=== PATIENT | female | born 1980 | race Caucasian/White ===

== ENCOUNTER 2020-09-03 10:58 | Emergency (ER) | payer BC, SELFPAY ==
--- NOTE | 2020-09-03 11:08 | ED.CHESTPAIN ---
HPI - Chest Pain General Chief Complaint: Shortness of Breath/Dyspnea Stated Complaint: problems after covid shot Time Seen by Provider: 09/03/20 11:08 Source: patient and RN notes reviewed Mode of arrival: ambulatory Limitations: no limitations and clinical condition History of Present Illness HPI narrative: 40-year-old female presents to the [facility] with complaints of continuous chest tighness and shortness of breath since getting the Covid vaccine on 08/04. Was seen at [facility] ER on August 05 with complaints of pain. Was given pain meds and told to follow-up with primary care provider which she reports that she has done. Patient reports that June 2019 her primary care believes that she had Covid at that time due to loss of taste and smell with chronic fatigue. Those symptoms had resolved. When she received her vaccine symptoms became worse. Related Data Home Medications Medication Instructions Recorded Confirmed albuterol sulfate 2 puff INHALATION Q4H PRN 09/03/20 09/03/20 fluticasone furoate-vilanterol 1 inh INHALATION DAILY 09/03/20 09/03/20 [Breo Ellipta] Allergies Allergy/AdvReac Type Severity Reaction Status Date / Time ciprofloxacin [From Cipro] Allergy Rash Verified 09/03/20 11:36 Penicillins Allergy Rash Verified 09/03/20 11:36 ketorolac [From Toradol] AdvReac Dyspnea / Verified 09/03/20 11:27 SOB Review of Systems Review of Systems: Narrative: CONSTITUTIONAL: Denies fever, chills, or sweats. Fatigue EYES: Denies visual changes, redness, or discharge. ENT: Denies rhinorrhea, congestion, sore throat, or otalgia. CARDIOVASCULAR: Denies chest pain. Reports chest pressure with palpitations. RESPIRATORY: Denies cough. Reports chronic dyspnea. GASTROINTESTINAL: Denies abdominal pain, nausea, vomiting, or diarrhea. GENITOURINARY: Denies dysuria or hematuria. SKIN: Denies rash or itching. MUSCULOSKELETAL: Denies back pain, joint pain, or myalgia. NEUROLOGIC: Denies headache, numbness, or weakness. PSYCHIATRIC: Denies anxiety or depression. All other systems reviewed are negative, except as documented in HPI. [facility] Past Medical History Medical History (Updated 09/03/20 @ 18:11 by Elke Ward) Asthma Surgical History Surgical History (Updated 09/03/20 @ 11:41 by Elke Ward) H/O adenoidectomy H/O: hysterectomy Comments At the time of my signature, I reviewed and agree with the nursing past medical, surgical, social, and family history. There is no relevant family history pertinent to the patient complaint. Exam Narrative: Exam Narrative: GENERAL: This is a well-nourished, well-developed patient, in mild distress. mildly ill HEAD: normocephalic, atraumatic. EYES: PERRL. Sclera clear/white. Vision is grossly intact. EARS: External ears normal NECK: Neck supple, non-tender without lymphadenopathy, masses or thyromegaly. CARDIOVASCULAR: Regular rate and rhythm without murmurs, gallops, or rubs. RESPIRATORY: Clear to auscultation. Breath sounds equal bilaterally. No wheezes, rales, or rhonchi. Tachypneic GASTROINTESTINAL: Abdomen soft, non-tender, nondistended. SKIN: warm, Dry, intact with no suspicious lesions or rash, good texture and turgor. NEURO: awake, alert, and oriented to person, place and time. There were no obvious focal neurologic abnormalities. EXTREMITIES: No joint tenderness, effusion, or edema noted. No calf tenderness. Negative Homans sign bilaterally. BACK: Nontender without deformity. No CVA tenderness. Course Vital Signs Vital signs: Vital Signs Temperature 98.1 F 09/03/20 11:10 Pulse Rate 62 09/03/20 11:10 Respiratory Rate 28 H 09/03/20 11:10 Blood Pressure 125/74 09/03/20 11:10 Pulse Oximetry 100 09/03/20 11:10 Temperature 98.1 F 09/03/20 11:10 Pulse Rate 62 09/03/20 11:10 Respiratory Rate 28 H 09/03/20 11:10 Blood Pressure 125/74 09/03/20 11:10 Pulse Oximetry 100 09/03/20 11:10 Reviewed Transfer Transfered
[2020-09-03 11:10] VITALS: BP 125/74; PULSE 62; RESP 28; TEMP 36.7; O2SAT 100
--- NOTE | 2020-09-03 11:19 | ECG_ITS ---
Measurements Intervals [place] Rate: 59 P: 71 VA: 134 QRS: 55 QRSD: 90 T: 60 QT: 429 QTc: 428 Interpretive Statements SINUS RHYTHM INCOMPLETE RIGHT BUNDLE BRANCH BLOCK BORDERLINE ECG Electronically Signed On 09-03-2020 16:15:32 CDT by Pipe Villalba D.O.
== END 2020-09-03 11:25 | disposition short-term general hospital (02) ==
LOC: EXPBETH 11:04
PROVIDERS: Emergency Provider Nurse Practitioner
DX: R06.02 Shortness of breath (principal); J45.909 Unspecified asthma, uncomplicated
CPT/HCPCS: 93005; 99213; G0463

== ENCOUNTER 2021-05-14 16:30 | Emergency (ER) | payer BC, SELFPAY ==
[2021-05-14 17:56] VITALS: BP 131/105; PULSE 70; RESP 14; TEMP 36.7; O2SAT 100
--- NOTE | 2021-05-14 19:28 | ED.URI ---
HPI - URI/Sore Throat General Chief Complaint: Upper Respiratory Infection Stated Complaint: Cough/Sore Throat/ Shortness of Breath Time Seen by Provider: 05/14/21 19:28 Source: patient, RN notes reviewed and old records reviewed Mode of arrival: ambulatory Limitations: no limitations History of Present Illness HPI Narrative: 41 year old female who prsents to express care with complaints of nausea yesterday and woke up to today with sore throat, cough, chills and body aches, report has had some coughing for one week though. Patient reports that she has had COVID vaccinations. Patient reports that she has been taking Ibuprofen for her symptoms. denies any acute fevers but states that she has had chills. Patient does have history of asthma but denies any acute dyspnea at rest or with activity, no tachypnea noted, SAO2 100% on room air. MD elicited complaint: cough, sore throat, rhinorrhea and nasal congestion Pertinent past history: asthma Treatments prior to arrival: ibuprofen Related Data Home Medications Medication Instructions Recorded Confirmed albuterol sulfate INHALATION 05/14/21 fluticasone furoate-vilanterol INHALATION 05/14/21 [Breo Ellipta] nortriptyline 50 mg PO DAILY 05/14/21 05/14/21 nystatin 100,000 unit TOPICAL BID 05/14/21 05/14/21 ondansetron 8 mg PO DIRECTED PRN 05/14/21 05/14/21 topiramate 25 mg PO HS 05/14/21 05/14/21 Allergies Allergy/AdvReac Type Severity Reaction Status Date / Time ciprofloxacin Allergy Unknown Rash Verified 05/14/21 18:44 ketorolac Allergy Unknown Dyspnea / Verified 05/14/21 18:44 SOB paroxetine Allergy Unknown Nausea Verified 05/14/21 18:44 Penicillins Allergy Unknown PARENTS Verified 05/14/21 18:44 ALLERGIC, JUST WONT GIVE sertraline Allergy Unknown Nausea Verified 05/14/21 18:44 Review of Systems Review of Systems: CONSTITUTIONAL: Denies fever,positive for chills, or sweats. EYES: Denies visual changes, redness, or discharge. ENT: Positive for rhinorrhea, congestion, sore throat, no otalgia. CARDIOVASCULAR: Denies chest pain, palpitations, or edema. RESPIRATORY: Positive cough no dyspnea. GASTROINTESTINAL: Denies abdominal pain, nausea, vomiting, or diarrhea. GENITOURINARY: Denies dysuria or hematuria. SKIN: Denies rash or itching. MUSCULOSKELETAL: Denies back pain, joint pain, body aches stated NEUROLOGIC: Denies headache, numbness, or weakness. PSYCHIATRIC:Positive for anxiety or depression. All systems reviewed & are unremarkable except as noted in HPI and below PMFSH Past Medical History Medical History (Updated 05/16/21 @ 20:35 by Michelle Corona NP) Asthma Hx of migraines Surgical History Surgical History (Updated 05/16/21 @ 20:36 by Michelle Croona NP) H/O adenoidectomy H/O tubal ligation H/O: hysterectomy History of placement of ear tubes Family History Family History (Updated 01/12/14 @ 07:13 by DOCTOR UNKNOWN) Grandparent Family history of type 2 diabetes mellitus Family history of heart disease in male family member before age 55 Father Family history of heart disease in male family member before age 55 Mother Family history of heart disease in male family member before age 55 Social History Social History Smoking status: Light tobacco smoker Alcohol intake: current Exam Narrative: GENERAL: Well-appearing, well-nourished, and in no acute distress. HEAD: Normocephalic, atraumatic. EYES: PERRLA and EOMI. ENT: Nares red with clear rhinorrhea no epistaxis. Mucous membranes moist.TM's normal with good light reflex, throat red with no lesions or exudates no tosnil enlargement post nasal drainage noted. NECK: Supple.no lymphadenopathy CHEST: Faint occasional wheeze noted on auscultation. No respiratory distress.cough dry SAO2 100% on room air. HEART: Regular rate and rhythm. No murmur heard. Normal peripheral pulses. ABDOMEN: Soft, nontender, nondistended, normal active bowel sounds. EXTREMITIES: Normal r
== END 2021-05-14 19:57 | disposition home or self-care (01) ==
PROVIDERS: Emergency Provider Registered Nurse
DX: J40 Bronchitis, not specified as acute or chronic (principal); F17.200 Nicotine dependence, unspecified, uncomplicated
CPT/HCPCS: 87081; 87804; 87880; 99203; G0463

== ENCOUNTER → 2021-05-16 02:27 | Outpatient (CLI) | payer BC, SELFPAY ==
[2021-05-16 20:33] LABS: SARS-CoV-2 RNA PCR Negative
== END ==
PROVIDERS: Visit Provider Registered Nurse
DX: J40 Bronchitis, not specified as acute or chronic (principal); Z20.822 Contact with and (suspected) exposure to COVID-19
CPT/HCPCS: C9803; U0003; U0005

== ENCOUNTER 2024-10-16 15:45 | Emergency (ER) | payer BC, SELFPAY ==
--- NOTE | ~2024-10-16 | XR_ITS ---
EXAMINATION: XR ankle RT min 3V, XR foot RT min 3V DATE: 10/16/2024 16:19 INDICATION: Right foot and ankle pain TECHNIQUE: 1. Anteroposterior, mortise, additional oblique and lateral view of the right ankle were obtained. 2. Dorsoplantar, two oblique and lateral views of the right foot were obtained. COMPARISON: None. FINDINGS: Alignment of the right foot and ankle is normal. No fracture or osteochondral lesion. Mild polyarticu lar osteoarthritis at multiple joints in the mid and forefoot. Small plantar calcaneal spur. No ankle joint effusion. Mild soft tissue swelling overlying the lateral malleolus and at the anterolateral h indfoot. IMPRESSION: 1. 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 No acute osseous abnormality. Reviewed, dictated and finalized at location A. IMPRESSION: 1. 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 No acute os seous abnormality.
[2024-10-16 15:53] VITALS: BP 129/97; PULSE 57; RESP 16; TEMP 36.4; O2SAT 100
--- NOTE | 2024-10-16 15:55 | ED.EXTPRO ---
HPI - Extremity Problem General Chief complaint: Extremity Problem,Nontraumatic Stated complaint: right foot/ankle Time Seen by Provider: 10/16/24 15:57 Source: patient, RN notes reviewed and old records reviewed Mode of arrival: ambulatory Limitations: no limitations History of Present Illness HPI Narrative: 44 year old female presents to express care with complaints of pain to her right foot and ankle with increase pain for the past 2 days with no known injury to her foot. Patient has increased pain when flexing foot, does have some swelling noted to the lateral aspect of her right ankle and to right foot with pulses present to right foot of strong quality. MD Complaint: extremity pain (right foot and ankle) Onset (ago): day(s) (2) Severity scale (1-10): 6 Exacerbating factors: weight bearing Related Data Home Medications ?Medication ?Instructions ?Recorded ?Confirmed ?Last Taken ?Type albuterol sulfate 90 mcg/actuation 2 puff inhalation Q4H PRN 09/03/20 09/03/20 Unknown History aerosol inhaler Shortness Of Breath albuterol sulfate 90 mcg/actuation inhalation 05/14/21 Unknown History aerosol inhaler fluticasone furoate 100 inhalation 05/14/21 Unknown History mcg-vilanterol 25 mcg/dose inhalation powder (Breo Ellipta) ondansetron 8 mg disintegrating 8 mg PO DIRECTED PRN Nausea 05/14/21 05/14/21 Unknown History tablet famotidine PO 10/16/24 Unknown History levothyroxine .ROUTE 10/16/24 Unknown History pantoprazole PO 10/16/24 Unknown History quetiapine .ROUTE 10/16/24 Unknown History Allergies Allergy/AdvReac Type Severity Reaction Status Date / Time ciprofloxacin Allergy Unknown Rash Verified 10/16/24 15:59 ketorolac Allergy Unknown Dyspnea / Verified 10/16/24 15:59 SOB paroxetine Allergy Unknown Nausea Verified 10/16/24 15:59 Penicillins Allergy Unknown PARENTS Verified 10/16/24 15:59 ALLERGIC, JUST WONT GIVE sertraline Allergy Unknown Nausea Verified 10/16/24 15:59 Review of Systems Review of Systems: CONSTITUTIONAL: Denies fever, chills, or sweats. EYES: Denies visual changes, redness, or discharge. ENT: Denies rhinorrhea, congestion, sore throat, or otalgia. CARDIOVASCULAR: Denies chest pain, palpitations, or edema. RESPIRATORY: Denies cough or dyspnea. GASTROINTESTINAL: Denies abdominal pain, nausea, vomiting, or diarrhea. GENITOURINARY: Denies dysuria or hematuria. SKIN: Denies rash or itching. MUSCULOSKELETAL: Denies back pain,positive for pain to her right lateral ankle and to right foot lateral side and increases when she flexes her foot, or myalgia. NEUROLOGIC: Denies headache, numbness, or weakness. PSYCHIATRIC: Denies anxiety or depression. All systems reviewed & are unremarkable except as noted in HPI and below [facility] Past Medical History Medical History (Updated 10/19/24 @ 07:46 by Michelle Corona NP) Bronchitis Asthma Asthma Hx of migraines Surgical History Surgical History H/O: hysterectomy H/O adenoidectomy H/O adenoidectomy History of placement of ear tubes H/O: hysterectomy H/O tubal ligation Family History Family History Grandparent Family history of type 2 diabetes mellitus Family history of heart disease in male family member before age 55 Father Family history of heart disease in male family member before age 55 Mother Family history of heart disease in male family member before age 55 Social History Social History Smoking status: Light tobacco smoker Alcohol intake: current Comments At time of signature, agree with nursing past medical, surgical, social and family history. There is no relevant family history pertinent to the presenting complaint Exam Narrative: GENERAL: Well-appearing, well-nourished, and in no acute distress. HEAD: Normocephalic, atraumatic. EYES: PERRLA and EOMI. ENT: Nares clear, no rhinorrhea or epistaxis. Mucous membranes moist. NECK: Supple.no lymphadenopathy CHEST: Clear to auscultation. No respiratory distress.SAO2 100% on room air HEART: Regular rate and rhythm. No murmur heard. Normal peripheral pulses. ABDOMEN: Soft, nontender, nondistended, normal active bowel sounds. EXTREMITIES: Normal range of motion. No edema. Exception noted to pain and swelling of lateral right ankle and lateral foot without known injury,increased pain with ambulation and flexion of foot,strong pedal pulse denies any tingling or numbness to foot, no obvious deformity SKIN: Warm, dry, no rash. NEURO: No focal deficits. Alert and oriented x3. Course Course Emergency Course: Patient is aware of diagnosis, understands and agrees to treatment plan.? Anticipatory guidance given.? Patient agrees to follow-up as directed and is aware of reasons to seek care at the emergency department. Portions of this record may have been created with voice recognition software Level of Care: Express Care Visit Vital Signs Vital signs: Vital Signs Temperature 36.4 C 10/16/24 15:53 Pulse Rate 57 L 10/16/24 15:53 Respiratory Rate 16 10/16/24 15:53 Blood Pressure 129/97 H 10/16/24 15:53 Pulse Oximetry 100 10/16/24 15:53 Oxygen Delivery Room Air 10/16/24 15:53 Temperature 36.4 C 10/16/24 15:53 Pulse Rate 57 L 10/16/24 15:53 Respiratory Rate 16 10/16/24 15:53 Blood Pressure 129/97 H 10/16/24 15:53 Pulse Oximetry 100 10/16/24 15:53 Oxygen Delivery Room Air 10/16/24 15:53 Reviewed MDM - Extremity (Nontraumatic) Differential Diagnosis Differential diagnosis: Likely other (right foot and ankle pain, swelling of right foot and ankle, osteoarthritis, plantar calcaneal spur) Medical Records Attestation: I reviewed the patient's medical records. Imaging Data My impression: polyarticular osteoarthritis right midfoot and forefoot, soft tissue swelling of lateral ankle and lateral foot,small plantar calcaneal spur Radiologist's impression: [facility] [place] [address] [place] [address] XRay Report Signed Patient: Lady Lugo : 1980 MR#: [id number] Age: 44 Acct:[id number] Loc: [facility] ADM Date: 10/16/24Attending Dr: Ordering Physician: Michelle Corona APRN Date of Service: 10/16/24 Procedure(s): XR ankle RT min 3V; XR foot RT min 3V Accession Number(s): [id number]; [id number] cc: Michelle Corona APRN~ EXAMINATION: XR ankle RT min 3V, XR foot RT min 3V DATE: 10/16/2024 16:19 INDICATION: Right foot and ankle pain TECHNIQUE: 1. Anteroposterior, mortise, additional oblique and lateral view of the right ankle were obtained. 2. Dorsoplantar, two oblique and lateral views of the right foot were obtained. COMPARISON: None. FINDINGS: Alignment of the right foot and ankle is normal. No fracture or osteochondral lesion. Mild polyarticular osteoarthritis at multiple joints in the mid and forefoot. Small plantar calcaneal spur. No ankle joint effusion. Mild soft tissue swelling overlying the lateral malleolus and at the anterolateral hindfoot. IMPRESSION: 1. 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 No acute osseous abnormality. Reviewed, dictated and finalized at location A. Please be advised this is a medical document. It is intended for [id number] communication. It is written in medical language and may contain unfamiliar abbreviations or verbiage. Medical documents are intended to carry relevant information, facts as evident, and the clinical opinion of the practitioner at the time of the encounter. This report may have been done utilizing a voice recognition system. Attempts have been made to correct errors. However, there may be uncorrected grammatical, spelling, and recognition errors present. The file time of this note does not necessarily represent the time of service. Dictated By: Mihir Cohen MD 10/16/24 1626 Signed By: <Electronically signed by Mihir Cohen MD in OV> Critical Care Time Critical Care Time Critical Care Time: No Discharge Plan Discharge Clinical Impression: Acute pain of right foot, Pain and swelling of right ankle Patient Disposition: Home Condition: Stable Instructions: Osteoarthritis (ED) Additional Instructions: Elastic wrap or orthopedic splint as directed for comfort for the next 5-7 days Tylenol for lesser pain Ibuprofen regularly for the next 2-3 days for the inflammation Follow-up with orthopedic surgeon or utility mechanic supervisor for further evaluation of foot Follow-up with PCP if further problems or concerns Ice to the area 20-30 minutes 4-6 times a day Elevate above heart If your symptoms persist, change or worsen significantly before you can contact your personal physician then please, without delay, go to the emergency department for further evaluation. Follow-up with PCP in 7-10 days or sooner if needed Follow up with PCP soon in regards to your blood pressure which is elevated above threshold for referral. Blood pressure above 120/80 may indicate pre-hypertension. 129/97 Disk copy of foot and ankle xray Patient Language: Citizen Of [place] Prescriptions: New prednisone 20 mg tablet 20 mg PO BID Qty: 10 0RF Rx Instructions: take with food No Action albuterol sulfate 90 mcg/actuation HFA aerosol inhaler 2 puff INHALATION Q4H PRN (Reason: Shortness Of Breath) ondansetron 8 mg tablet,disintegrating 8 mg PO DIRECTED PRN (Reason: Nausea) albuterol sulfate 90 mcg/actuation HFA aerosol inhaler INHALATION Breo Ellipta 100-25 mcg/dose blister with device INHALATION quetiapine [Seroquel] .ROUTE levothyroxine [Synthroid] .ROUTE pantoprazole PO famotidine [Pepcid AC] PO Follow-up/Referrals: PHYSICIAN NOT ON STAFF,NONSTAFF [Primary Care Provider] - Time of Disposition: 17:09 Quality Lizzette Coma Scale Eyes: Open Verbal: Oriented and Alert Motor: Follows Commands Lizzette Coma Total Score: 15
--- OUTSIDE RECORDS SUMMARY | 2024-10-16 18:12 | XMS_ITS | Encounter Summary ---
Author Organization [facility] Address [address] [place] [address] Phone Care Team Providers Care Podiatric Foot And Ankle Specialist Name Role Phone Cody Dasilva MD Primary Care Provider Tessa Rincon APRN, COIN WRAPPING MACHINE OPERATOR Primary Care Provid er Ambreen Mendez APRN, COIN WRAPPING MACHINE OPERATOR Unavailable [phone] Reason for Visit * Reason Onset Date Comments ED Follow-up 08/09/2020 Encounter Details Date Type Department Care Team (Late st Contact Info) Description 08/09/2020 Telephone [facility] [address] [place] [address] Cody Dasilva MD [address] [address] ED Follow-up Social History Tobacco Use Types Packs/Day Years Used Date Smoking Tobacco: Some Days Cigarettes 0.3 20 Smokeless Tobacco: Never Comments:less a pack a day Alcohol Use Standard Drinks/Week Comments No 0 (1 standard drink = 0.6 oz pur e alcohol) social PHQ-2 Answer Date Recorded Total Score - Questions 1-9 0 02/16 Education Answer Date Recorded What is the highest level of school you have completed or the highest degree you have received? Some college, no degree 04/03/2020 Sexually Active Control Partners Comments Yes Male Comments No Sex and Gender Information Value Date Recorded Sex Assigned at Not on file Legal Sex Female 7:43 PM CDT Gender Identity Not on file Sexual Orientation Not on file COVID-19 Exposure Response Date Recorded In the last month, have you been in contact with someone who was confirmed or suspected to have Coronavirus / COVID-19? No / Unsure 08/10/2020 12:45 PM CDT documented as of this encounter Miscellaneous Notes * Telephone Encounter - Anita Altman RMA - 08/10/2020 10:49 AM CDT Scheduled patient today 08/10 * Telephone Encounter - Cody Dasilva MD - 08/09/2020 2:30 PM CDT Please call. Make ov. i'm not sure what is going on and how to help you. * Telephone Encounter - López Mccain RN - 08/09/2020 1:50 PM CDT Pt f/u to the 08/05/20 ED visit. States still not feeling any better since receiving her 2nd Moderna dose on 08/04/20 States still having the nausea, COTTO, fatigue, fever off and on and loss taste. States tramadol and zofran only give minimal relief. Asking for further recommendations documented in this encounter Plan of Treatment Upcoming Encounters Date Type Department Care Team (Late st Contact Info) Description 10/18/2024 8:00 AM CDT Office Visit [facility] - Pulmonology & Sleep Medicine - [place] [address] [place] [id number] Ambreen Mendez, DARLINE, COIN WRAPPING MACHINE OPERATOR [id number] [address] 11/03/2024 8:15 AM CDT Office Visit [facility] - Endocrinology - [place] [address] [place] [address] Tessa Rincon APRN, COIN WRAPPING MACHINE OPERATOR [address] [facility] [address] [place] [address] Henrik Jimenez MD [address] [address] 01/10/2025 10:30 AM CDT Office Visit [facility] Family Medicine - [place] [address] [place] [address] Tessa Rincon APRN, COIN WRAPPING MACHINE OPERATOR [address] [address] documented as of this encounter Visit Diagnoses Not on filedocumented in this encounter Additional Health Concerns Infection Onset Date Last Indicated Resolved Time COVID - 19 08/10/2020 08/10/2020 08/12/2020 7:46 AM CDT COVID - 19 09/03/2020 09/03/2020 09/05/2020 7:44 AM CDT COVID - 19 03/19/2021 03/19/2021 04/08/2021 12:1 6 AM INFRASTRUCTURE PROJECT MANAGER COVID - 19 05/20/2021 05/20/2021 06/09/2021 12:1 6 AM INFRASTRUCTURE PROJECT MANAGER COVID - 19 2022 2022 05/05/2022 12:1 6 AM INFRASTRUCTURE PROJECT MANAGER Respiratory Rule-Out 09/27/2023 09/27/2023 024 3:23 PM CDT COVID - 19 09/27/2023 09/27/2023 09/27/2023 3:23 PM CDT COVID - 19 01/14/2024 01/14/2024 01/14/2024 10:3 0 AM CDT COVID - 19 Confirmed 01/14/2024 01/14/20242 024 12:16 AM CDT COVID - 19 07/06/2024 07/06/2024 07/06/2024 6:57 PM INFRASTRUCTURE PROJECT MANAGER Respiratory Rule-Out 07/06/2024 07/06/2024 025 6:58 PM INFRASTRUCTURE PROJECT MANAGER Assessment Noted Time PHQ-9 Depression Total Score: 0 03/09/20 20 1:17 PM CDT documented as of this encounter Care Teams Podiatric Foot And Ankle Specialist Relationship Specialty Start Date End Date Cody Dasilva MD [address] [facility] [address] [place] [address] PCP - General Family Medicine 08/19/16 04/20/23 Tessa Rincon APRN, COIN WRAPPING MACHINE OPERATOR [address] [facility] [address] [place] [address] PCP - General Advanced Practice Nurse 04/21/23 Ambreen Mendez APRN, COIN WRAPPING MACHINE OPERATOR [address] [facility] [address] [place] [address] Nurse Practitioner Advanced Practice Nurse 02/26/24 documented as of this encounter
--- OUTSIDE RECORDS SUMMARY | 2024-10-16 18:12 | XMS_ITS | Encounter Summary ---
Author Organization [facility] Address [address] [place] [address] Phone Care Team Providers Care Light Air Defense Artillery Crewmember Name Role Phone Tessa Rincon APRN, JAIRON Primary Care Provid er Ambreen Mendez APRN, CNP Unavailable [phone] Reason for Visit * Reason Comments Medication Refill Encounter Details Date Type Department Care Team (Late st Contact Info) Description 05/15/2023 Refill [facility] - Family Medicine [facility] [address] [place] [address] Tessa Rincon APRN, JAIRON [address] [phone] Medication Refill Social History Tobacco Use Types Packs/Day Years Used Date Smoking Tobacco: Every Day Cigarettes 0.3 20 Started: 09/22/2000; Last attempted to quit: 09/22/2020 Smokeless Tobacco: Never Comments:2 a day Alcohol Use Standard Drinks/Week Comments Not Currently 0 (1 standard drink = 0.6 oz pur e alcohol) PHQ-2 Answer Date Recorded Total Score - Questions 1-9 14 09/15 Education Answer Date Recorded What is the highest level of school you have completed or the highest degree you have received? Some college, no degree 10/08/2021 Sexually Active Control Partners Comments Yes Male Comments No Sex and Gender Information Value Date Recorded Sex Assigned at Not on file Legal Sex Female 7:43 PM CDT Gender Identity Not on file Sexual Orientation Not on file documented as of this encounter Miscellaneous Notes * Telephone Encounter - Karma Riddle RN - 05/15/2023 10:05 AM LABORER VINEYARD Medication failed the protocol, provider to review and approve the medication order if appropriate. Requested Prescriptions Pending Prescriptions Disp Refills naproxen (NAPROSYN) 500 MG Tablet [Pharmacy Med Name: Naproxen 500 MG Oral Tablet] 60 Tablet 0 Sig: TAKE 1 TABLET BY MOUTH TWICE DAILY WITH MEALS NSAIDs Protocol Failed - 05/15/2023 9:41 AM Failed - No matching NSAID med order in past 45 days Matching medication order placed on 04/21/2023 7:51 AM Order [id number]: naproxen (NAPROSYN) 500 MG Tablet (For orders placed between 03/31/2023 10:05 AM and 05/15/2023 10:05 AM) Passed - Normal serum creatinine in past 12 months CREATININE, BLOOD Date Value Ref Range Status 04/05/2023 0.84 0.60 - 1.00 mg/dL Final Passed - Visit with relevant provider in past 12 months or upcoming 90 days Recent Visits Date Type Provider Dept 04/21/23 Office Visit Tessa Rincon APRN, CORN SHREDDER [facility] 09/04/22 Office Visit Yony Shannon APRN, CORN SHREDDER [facility] [place] 08/27/22 Telemedicine Cody Dasilva MD [facility] [place] 08/12/22 Telemedicine Cody Dasilva MD [facility] [place] 07/29/22 Office Visit Cody Dasilva MD [facility] 05/28/22 Office Visit Bisi Mcdonald, [facility] Showing recent visits within past 365 days and meeting all other requirements Future Appointments No visits were found meeting these conditions. Showing future appointments within next 90 days and meeting all other requirements Passed - AST less than 55 or ALT less than 90 in past 12 months SGOT (AST) Date Value Ref Range Status 04/05/2023 17 5 - 34 U/L Final SGPT (ALT) Date Value Ref Range Status 04/05/2023 14 0 - 55 U/L Final Passed - HGB greater than 10 or HCT greater than 30 in past 12 months HEMOGLOBIN (HGB) Date Value Ref Range Status 04/05/2023 12.4 12.0 - 15.8 g/dL Final HEMATOCRIT (HCT) Date Value Ref Range Status 04/05/2023 37.2 36.0 - 47.0 % Final RER VINEYARD documented in this encounter Plan of Treatment Upcoming Encounters Date Type Department Care Team (Late st Contact Info) Description 10/18/2024 8:00 AM CDT Office Visit [facility] - Pulmonology & [facility] Medicine - [place] [address] [place] [address] Ambreen Mendez APRN, CORN SHREDDER #2 [facility] [address] [place] [address] 11/03/2024 8:15 AM CDT Office Visit [facility] - [place] #2 [facility] [place] [address] Tessa Rincon APRN, CORN SHREDDER #2 [facility] [address] [place] [address] Henrik Jimenez MD #2 [facility] [address] [place] [address] 01/10/2025 10:30 AM CDT Office Visit [facility] - [place] [address] [place] [address] Tessa Rincon APRN, CORN SHREDDER [address]2 [facility] [address] [place] [address] documented as of this encounter Goals Goal Patient Goal Type Associated Problems Recent Progress Patient-Stated? Author Behavioral Health Behavioral Health On track(2022 4:17 PM CDT) Yes Pattie Carpio, SAP HANA DEVELOPER Note: I need to cope better with depression and anxiety. Goal/Objective: Increase coping skills. Anticipated Time Frame for Goal Completion: 6 months Goal Reviewed with: patient Readiness to change: Ready to change Department associated with goal: [facility] Steps to achieve goal: will attend counseling/psychotherapy sessions at least once monthly at least 6 sessions , utilizing individual and/or group sessions to express thoughts and feelings. to identify, verbalize and process at least three contributing factors/triggers to anxiety and depression. T o identify at least two lifestyle changes/habits. to put into action, at least one lifestyle change/habit, for one month or longer, to reduce and or cope with anxiety and depression. documented as of this encounter Visit Diagnoses Diagnosis Acute right-sided low back pain with right-sided sciatica documented in this encounter Additional Health Concerns Infection Onset Date Last Indicated Resolved Time Respiratory Rule-Out 09/27/2023 09/27/2023 024 3:23 PM CDT COVID - 19 09/27/2023 09/27/2023 09/27/2023 3:23 PM CDT COVID - 19 01/14/2024 01/14/2024 01/14/2024 10:3 0 AM CDT COVID - 19 Confirmed 01/14/2024 01/14/2024 024 12:16 AM CDT COVID - 19 07/06/2024 07/06/2024 07/06/2024 6:57 PM LABORER VINEYARD Respiratory Rule-Out 07/06/2024 07/06/2024 025 6:58 PM LABORER VINEYARD Assessment Noted Time PHQ-9 Depression Total Score: 14 023 2:00 PM CDT documented as of this encounter Care Teams Light [employer] Artillery Crewmember Relationship Specialty Start Date End Date Tessa Rincon APRN, JAIRON [address] [address] PCP - General Advanced Practice Nurse 04/21/23 Ambreen Mendez APRN, CORN SHREDDER [address] [address] Nurse Practitioner Advanced Practice Nurse 02/26/24 documented as of this encounter
--- OUTSIDE RECORDS SUMMARY | 2024-10-16 18:12 | XMS_ITS | Data Portability ---
Author Organization [facility] CS/KV/SMSCIvan SI (11) Address [id number] [place] [address] [address] [place] [address] Care Team Providers Care Caser Shoe Parts Name Role Phone GRISELDA ANTONIO Referring Provider Assessment No assessment recorded. Plan of Treatment Reminders Order Date Submit Date Provider Last Modified By Organization Details Last Modified Time Details Appointments None record ed. Lab None record ed. Referral None record ed. Procedures None record ed. Surgeries None record ed. Imaging None record ed. Medication Orders None record ed. Patient TargetsNo targets recorded. Patient InstructionsNo instructions recorded. Reason for Referral None Reported. Problems Name Problem SNOMED Code Status Onset Date Resolution Date Notes Provider Name and Address Organization Details Recorded Time Obstructive sleep apnea of adult [id number] Active Haley Shields null, [place] - [facility] 6 14:47:14 Problem Notes None recorded. Procedures Surgical History Date Name Laterality Status Provider Name and Address Organization Details Recorded Time 10/29/2015 Sleep Study completed Flavio Das [id number] [place] [address] [address], [place], [address], [facility] 11/14/2015 16:48:56 Imaging Results None recorded. Procedure Notes None recorded. Medical Equipment None Reported. Vitals None Recorded Social History None recorded. Functional Status None recorded. Mental Status None recorded. Family History Nothing Reported. Medical History No medical history recorded. Gynecological HistoryNo gynecological history recorded. Obstetrics History GPAL:G 0 P 0 0 0 0 Past Encounters Encounter ID Performer Location Encounter Start Date Encounter Closed Date Diagnosis/Indication Diagnosis SNOMED-CT Code Diagnosis ICD10 Code Diagnosis Note [id number] [facility], [facility] [phone] [facility] [address] [place] [address] 10/29/2015 14:30:03 11/05/2015 14:47:35 Obstructive sleep apnea of adult 3089586982 103 G47.33 Health Concerns Section Related Observation LastModified by Organization Detai ls LastModified Time None Recorded Concern Status LastModified by Organization Details LastModified Time None Recorded Advance Directives Directive None Recorded Payers Insurance Date Sequence Insurance Name Policy Number Policy Morgan Covered Member ID Morgan Member ID Guarantor Name 11/05/2015 2 [place] [facility] Lady Lugo [id number] Lady Lugo 10/19/2015 2 [place] Lady Lugo [id number] Lady Lugo 10/19/2015 1 [facility] [place] Lady Lugo [id number] Lady Lugo 10/24/2015 1 [facility] - [employer] - LOCAL FUND 36 (PPO) Lady Lugo [id number] Lady Lugo 10/29/2015 1 [facility] - [facility] - CARE MANAGEMENT RESOURCES - LOCAL 655 (PPO) Lady Lugo [id number] Lady Lugo OBGyn Episode No OBEpisode recorded.
--- OUTSIDE RECORDS SUMMARY | 2024-10-16 18:12 | XMS_ITS | Encounter Summary ---
Author Organization [facility] Address [address] [place] [address] Phone Care Team Providers Care Pot Fireman Name Role Phone Cody Dasilva MD Primary Care Provider [phone] Tessa Rincon APRN, CNP Primary Care Provid er Ambreen Mendez APRN, JAIRON Unavailable [phone] Reason for Referral * Radiology Services (Emergency) - Closed Specialty Diagnoses / Procedures Referred By Sho stephens Referred To Contact Radiology Diagnoses Right leg pain Procedures US RIGHT DUPLEX LOWER EXTREMITY VEINS Saba Julian APRN, COURIER DELIVERY DRIVER [address] [place] [address] Phone: tel: fax: Referral ID Status Reason Start Date Expiration Date Visits Re quested Visits Authorized [id number] Closed 04/06/2023 1 1 SCREEN PRINTER Encounter Details Date Type Department Care Team (Late st Contact Info) Description 04/06/2023 Transcribe Orders [facility] Patient Access Admitting [address] [place] [id number] Saba Julian APRN, COURIER DELIVERY DRIVER [address] [place] [address] Right leg pain (Primary Dx) Social History Tobacco Use Types Packs/Day Years [...] on file documented as of this encounter Plan of Treatment Upcoming Encounters Date Type Department Care Team (Late st Contact Info) Description 10/18/2024 8:00 AM CDT Office Visit [facility] - Pulmonology & Sleep Medicine [facility] #2 [place] [address] Ambreen Mendez APRN, COURIER DELIVERY DRIVER #2 [facility] [address] [place] [address] 11/03/2024 8:15 AM CDT Office Visit [facility] Medical [facility] - Endocrinology [facility] #[address] [place] [address] Tessa Rincon APRN, COURIER DELIVERY DRIVER #2 [facility] [address] [place] [address] Henrik Jimenez MD #2 [facility] [address] [place] [address] 01/10/2025 10:30 AM CDT Office Visit [facility] Family Medicine [facility] #[address] [place] [address] Tessa Rincon APRN, COURIER DELIVERY DRIVER [address] [address] documented as of this encounter Goals Goal Patient Goal Type Associated Problems Recent Progress Patient-Stated? Author Behavioral Health Behavioral Health On track(2022 4:17 PM CDT) Yes Pattie Carpio, ENVIRONMENTAL SERVICES ATTENDANT Note: I need to cope better with depression and anxiety. Goal/Objective: Increase coping skills. Anticipated Time Frame for Goal Completion: 6 months Goal Reviewed with: patient Readiness to change: Ready to change Department associated with goal: [facility] Steps to achieve goal: [...] and depression. documented as of this encounter Results * US RIGHT DUPLEX LOWER EXTREMITY VEINS (04/06/2023 8:04 AM SILK SCREEN PRINTER) Anatomical Region Laterality Modality vascular Right Ultrasound 04/06/2023 8:05 AM SILK SCREEN PRINTER Impressions 04/06/2023 8:08 AM SILK SCREEN PRINTER IMPRESSION: No lower extremity deep venous thrombosis. Narrative 04/06/2023 8:08 AM SILK SCREEN PRINTER EXAM DESCRIPTION: US RIGHT DUPLEX LOWER EXTREMITY VEINS REASON FOR STUDY: Right lower leg pain, lateral leg pain radiating to the pelvis for 2 days. TECHNIQUE: Duplex scan using the B-mode, spectral Doppler, and color-flow Doppler of the deep venous system of the right lower extremity was performed. Images stored on PACS. COMPARISON: None. FINDINGS: The common femoral, common femoral-saphenous vein confluence, visualized profunda femoral, superficial femoral, and popliteal veins are readily compressible with no intraluminal thrombus on crawford scale images. There is normal color and spectral Doppler signal, including augmentation. Greater saphenous vein appears patent. Visualized calf veins are patent. THIS IS AN ELECTRONICALLY VERIFIED FINAL REPORT 04/06/2023 8:05 AM - Electronically signed by Greg Cordero M.D. CH: RANI Report ID: [id number] Reading Location: [id number] Procedure Note Greg Cordero Jr., MD - 04/06/2023 EXAM DESCRIPTION: US RIGHT DUPLEX LOWER EXTREMITY VEINS REASON FOR STUDY: Right lower leg pain, lateral leg pain radiating to the pelvis for 2 days. TECHNIQUE: Duplex scan using the B-mode, spectral Doppler, and color-flow Doppler of the deep venous system of the right lower extremity was performed. Images stored on PACS. COMPARISON: None. FINDINGS: The common femoral, common femoral-saphenous vein confluence, visualized profunda femoral, superficial femoral, and popliteal veins are readily compressible with no intraluminal thrombus on crawford scale images. There is normal color and spectral Doppler signal, including augmentation. Greater saphenous vein appears patent. Visualized calf veins are patent. THIS IS AN ELECTRONICALLY VERIFIED FINAL REPORT 04/06/2023 8:05 AM - Electronically signed by Greg Cordero M.D. CH: RANI Report ID: [id number] Reading Location: [id number] IMPRESSION: No lower extremity deep venous thrombosis. Saba Julian APRN, COURIER DELIVERY DRIVER G ORDERABLES Fin al Result documented in this encounter Visit Diagnoses Diagnosis Right leg pain- Primary Pain in limb Right leg pain Pain in limb documented in this encounter Additional Health Concerns Infection Onset Date Last Indicated Resolved Time Respiratory Rule-Out 09/27/2023 09/27/2023 024 3:23 PM CDT COVID - 19 09/27/2023 09/27/2023 09/27/2023 3:23 PM CDT COVID - 19 01/14/2024 01/14/2024 01/14/2024 10:3 0 AM CDT COVID - 19 Confirmed 01/14/2024 01/14/2024 024 12:16 AM CDT COVID - 19 07/06/2024 07/06/2024 07/06/2024 6:57 PM SILK SCREEN PRINTER Respiratory Rule-Out 07/06/2024 07/06/2024 025 6:58 PM SILK SCREEN PRINTER Assessment Noted Time PHQ-9 Depression Total Score: 14 023 2:00 PM CDT documented as of this encounter Care Teams Pot Fireman Relationship Specialty Start Date End Date Cody Dasilva MD #2 [facility] [address] [place] [address] PCP - General Family Medicine 08/19/16 04/20/23 Tessa Rincon APRN, COURIER DELIVERY DRIVER #2 [facility] [address] [place] [address] PCP - General Advanced Practice Nurse 04/21/23 Ambreen Mendez APRN, COURIER DELIVERY DRIVER #2 [facility] [address] [place] [address] Nurse Practitioner Advanced Practice Nurse 02/26/24 documented as of this encounter
--- OUTSIDE RECORDS SUMMARY | 2024-10-16 18:12 | XMS_ITS | CONTINUITY OF CARE DOCUMENT ---
Author Name zakiya sigala Address Unknown Organization [facility] Address [address] [place] [address] Phone [phone] Care Team Providers Care Senior Solutions Engineer Name Role Phone Pam MEYERS, Evert Unavailable STROHBECK TURNER SPLITTER MACHINE OPERATOR, PRIYA R Unavailable STROHBECK TURNER SPLITTER MACHINE OPERATOR, PRIYA R Unavailable PROBLEMS Condition Status Date Provider Notes Asthma active Felicitas Lacy NP Chronotropic incompetence active Evert chew MD HTN borderline active Evert Orozco MD Sinus bradycardia active Evert Orozco MD Palpitations active Evert Orozco MD Cardiology examination active Evert Orozco MD ENCOUNTERS Date Type Provider Location Encounter Diag nosis - In-person encounter Office Visit Evert Orozco MD [facility] Asthma - In-person encounter Office Visit Evert Orozco MD [facility] Cardiology examinationPalpitationsSinus bradycardiaHTN borderlineChronotropic incompetence VITAL SIGNS Date Observation Value Provider Body Mass Index (Ratio) 26.75 kg/m2 Jerome Orozco MD blood pressure, cuff size regular Vi nida Sarmiento blood pressure, diastolic 95 mm[Hg] Vi nida Sarmiento blood pressure, systolic 132 mm[Hg] Vip in Torsten respiratory rate E&M 16 /min [facility] pulse rate 50 /min Victor Hugo [facility] oxygen saturation, oximetry 100 % [facility] weight E&M 151 [lb_av] [facility] height E&M 63 [in_i] Victor Hugojunior Sarmiento weight E&M 156 [lb_av] Stella hull Body Mass Index (Ratio) 27.63 kg/m2 Jerome Orozco MD blood pressure, cuff size regular Ke rri Carol blood pressure, diastolic 80 mm[Hg] Ke rri Carol blood pressure, systolic 146 mm[Hg] Dalila Roweer oxygen saturation, oximetry 99 % Manju Medina respiratory rate E&M 12 /min Manju moraenenfelder pulse rate 50 /min Manju Whitney lder weight E&M 156 [lb_av] Manju Whitney lder height E&M 63 [in_i] Manju Whitney lder ALLERGIES Allergy Name Onset Date Reaction Criticality Status PCN High Criticality active TORADOL Low Criticality active PAXIL Low Criticality active CIPRO Low Criticality active HISTORY OF MEDICATION USE Medication Status Instructions Dates Provider Indications Com ments pantoprazole 40 mg tablet,delayed release (DR/EC) active TAKE 1 TABLET BY MOUTH ONCE DAILY Felicitas Lacy NP trazodone 50 mg tablet active Take 1 tablet by mouth every night Felicitas Lacy NP ondansetron 4 mg tablet,disinteg rating active Take 1 tablet on tongue twice a day nausea Felicitas Lacy NP Imitrex 100 mg tablet active 1 tablet by mouth once a day as needed for pain Felicitas Lacy NP tramadol 50 mg tablet completed - Manju Medina albuterol sulfate 90 mcg/actuation HFA aerosol inhaler active INHALE 2 PUFFS BY MOUTH EVERY 6 HOURS NEEDED FOR SHORTNESS OF BREATH Josianeberkley Bambi KULKARNI Breo Ellipta 200-25 mcg/dose blister with device active 1 puff as directed Felicitas Lacy NP SOCIAL HISTORY Date Observation Value Provider personal history of marijuana use no Felicitas Lacy NP drug use no Felicitas Lacy NP alcohol use no Josianeberkley Lacy NP cigarette use yes Felicitas Bambi KULKARNI smoking status Former smoker Felicitas montanez NP INSURANCE PROVIDERS Payer name Policy type / Coverage type [place] red democrat ID [facility] [id number] ADVANCE DIRECTIVES Name Date DISCUSSED - NO DECISION MADE TREATMENT PLAN Date Name Performer Cardiology: N o recent exacerbations. H er updated medication list for this problem includes: Albuterol Sulfate 90 Mcg/actuation Hfa Aerosol Inhaler (Albuterol sulfate) ..... Inhale 2 puffs by mouth every 6 hours as needed for shortness of breath Breo Ellipta 200-25 Mcg/dose Blister With Device (Fluticasone furoate-vilanterol) ..... 1 puff as directed Felicitas Lacy NP Cardiology: N o significant arrhythmias noted on holter monitor. Felicitas Lacy NP Cardiology: N o significant arrhythmias noted on holter monitor. E cho 01/08 wnl ef 65% Felicitas Lacy NP Cardiology: A ppropriate response on stress test Felicitas Lacy NP Cardiology: B P today: 132/95 P rior BP: 146/80 (12/02/2023) Felicitas Lacy NP Cardiology:146/80 today Evert carlos MD Cardiology:Check ECH O Waiting for holter report Evert Orozco MD Cardiology:Routine stress test R toma Orozco MD Date Name Complete Echo Stress Routine HISTORY OF PROCEDURES Procedure Date Procedure Name Provider Procedure Notes S tatus EKG Evert Oorzco MD complete d
--- OUTSIDE RECORDS SUMMARY | 2024-10-16 18:12 | XMS_ITS | Referral Summary ---
Author Organization [facility] Address [address] [place] [address] Care Team Providers Care Supervisor Gas Meter Repair Name Role Phone Tessa Rincon NP Primary Care Provider + Allergies Active Allergy Reactions Criticality Noted Date Comments Ciprofloxacin Hives Medium 12/02/2023 Ketorolac Shortness of breath High 12/02/2023 Paroxetine Anxiety Low 12/02/2023 Penicillins Hives,Rash Medium Medications Breo Ellipta 200-25 mcg/dose diskus inhaler 1 puff daily 2 Active acetaminophen (TYLENOL) 500 mg tablet Take 1 tablet (500 mg total) by mouth every 6 (six) hours as needed for pain Active benzonatate (TESSALON) 100 mg capsuleIndications :Cough Take 1 capsule (100 mg total) by mouth 3 (three) times a day as needed for cough Active methylPREDNISolone (MEDROL DOSEPACK) 4 mg Dosepack Take 1 tablet (4 mg total) by mouth Take as directed on package Active traZODone (DESYREL) 50 mg tablet Take 1 tablet (50 mg total) by mouth nightly Active phenylephrine-acet aminophen-GG 5-325-200 mg tablet Take by mouth Active estazolam (PROSOM) 2 mg tablet Take 1 tablet (2 mg total) by mouth nightly as needed for sleep Active ondansetron ODT (ZOFRAN-ODT) 4 mg disintegrating tablet Take 1 tablet (4 mg total) by mouth every 6 (six) hours as needed 4 Active albuterol HFA (PROVENTIL HFA,VENTOLIN HFA,PROAIR HFA) 90 mcg/actuation inhaler albuterol sulfate 90 mcg/actuation HFA aerosol inhaler Active SUMAtriptan (Imitrex) 100 mg tablet Imitrex 100 mg tablet Active famotidine (PEPCID) 20 mg tablet Take 1 tablet (20 mg total) by mouth 2 (two) times a day as needed Active Active Problems Problem Noted Date Diagnosed Date Obstructive sleep apnea of adult 02/23/2024 Asthma 01/27/2024 Chronotropic incompetence 12/02/2023 Palpitations 12/02/2023 Primary hypertension 12/02/2023 Sinus bradycardia 12/02/2023 Insomnia 10/12/2023 Right sided sciatica 04/07/2023 Simple chronic bronchitis 10/04/2020 Anxiety 12/08/2016 Chronic migraine without aur a without status migrainosus, not intractable 11/10/2016 Depression 11/10/2016 Viral upper respiratory tract infection 08/16/19 17 Overview (10/10/2016): Viral upper respiratory tract infection Fluid level behind tympanic membrane 08/15/2016 Overview (10/10/2016): Middle ear effusion, bilateral Hypertrophy of inferior nasal turbinate 10/19/19 16 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 10/19/2015 Pachyderma of larynx 10/19/2015 Persistent hypersomnia 10/19/2015 PNAR (perennial non-allergic rhinitis) 6 High-risk 10/03/2011 Immunizations Immunization Administration Dates Next Due Tdap 05/10/2018 Social History Tobacco Use Types Packs/Day Years Used Date Smoking Tobacco: Former Cigarettes 0.8 15 Smokeless Tobacco: Never Alcohol Use Standard Drinks/Week Comments Not Currently 0 (1 standard drink = 0.6 oz pur e alcohol) Personal Safety Answer Date Recorded Have you ever been in or are you currently in a harmful physical or emotional relationship or is someone making you feel afraid or unsafe? 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 [employer] Gender Identity Not on file Sexual Orientation Not on file Last Filed Vital Signs Vital Sign Reading Time Taken Comments Blood Pressure 138/80 02/23/2024 11:06 AM CDT Pulse 52 01/20/2024 4:45 PM CDT Temperature 37 C (98.6 F) 01/20/2024 11:15 AM CDT Respiratory Rate 18 01/20/2024 4:45 PM CDT Oxygen Saturation 100% 01/20/2024 4:45 PM CDT Inhaled Oxygen Concentration - - Weight 70.7 kg (155 lb 12.8 oz) 024 11:06 AM CDT Height 160 cm (5' 3) 01/20/2024 11:15 AM CDT Body Mass Index 27.6 01/20/2024 11:15 AM CDT Plan of Treatment Not on file Procedures Procedure Name Priority Date/Time Associated Diagnosis Comments SCREENING MAMMOGRAM BILATERAL W CARLOS Schedule Routine, Read Routine (OP Routine) 03/02/2024 10:54 AM CDT Encounter for screening mammogram for malignant neoplasm of breast from Last 3 Months or Most Recently Relevant to Health Maintenance Results * Screening Mammogram Bilateral W Carlos (03/02/2024 10:54 AM CDT) Anatomical Region Laterality Modality Breast Bilateral Mammography 03/02/2024 10:4 1 PM CDT Impressions 03/02/2024 10:41 PM CDT There is no mammographic evidence of malignancy. A 1 year screening mammogram is recommended. BI-RADS: 1 - Negative. The patient has been or will be contacted. The patient will be entered into a reminder system with a target due date of 1 year for her next mammogram. Electronically signed by: Pranav Cr M.D. Narrative 03/02/2024 10:41 PM CDT EXAMINATION: SCREENING MAMMOGRAM BILATERAL W CARLOS ORDERING HEALTHCARE PROVIDER: MARI VIVAR HISTORY: Routine screening mammography. COMPARISON: 12/16/2021 TECHNIQUE: CC and MLO views of the bilateral breasts were obtained with digital technique using breast tomosynthesis with C view. Computer aided detection was utilized. FINDINGS: DENSITY: The breasts are heterogeneously dense, which may obscure small masses. BREASTS: There are no suspicious masses, suspicious calcifications, or other suspicious findings in either breast. There has been no suspicious interval change. us Mari Vivar DO IMG MAMMO PROCEDURES Fi nal Result from Last 3 Months or Most Recently Relevant to Health Maintenance Insurance [place] CHOICE [place] Care Teams Supervisor Gas Meter Repair Relationship Specialty Start Date End Date Tessa Rincon NP [address] [address] PCP - General Nurse Practitioner 01/06/24
--- OUTSIDE RECORDS SUMMARY | 2024-10-16 18:12 | XMS_ITS | Encounter Summary ---
Author Organization [facility] Address [address] [place] [address] Phone Care Team Providers Care Locomotive Repairer Diesel Name Role Phone Tessa Rincon APRN, CNP Primary Care Provid er Ambreen Mendez APRN, CNP Unavailable [phone] Encounter Details Date Type Department Care Team (Late st Contact Info) Description 10/11/2024 Documentation Only [facility] [address] [place] [address] Tessa Rincon APRN, CNP [address] [id number] Social History Tobacco Use Types Packs/Day Years Used Date Smoking Tobacco: Light Smoker Cigarettes 0.3 25.9 Started: 995; Last attempted to quit: 09/22/2020 Smokeless Tobacco: Never Comments:2 a day Alcohol Use Standard Drinks/Week Comments Not Currently 0 (1 standard drink = 0.6 oz pur e alcohol) [facility] Utilities Answer Date Recorded In the past 12 months has [employer], gas, oil, or water [employer] threatened to shut off services in your home? No 07/20/2024 Social Connection and Isolat ion Panel [NHANES] Answer Date Recorded In a typical week, how many times do you talk on the phone with family, friends, or neighbors? Once a week 07/20/2024 How often do you get togethe r with friends or relatives? Never 07/20/2024 How often do you attend chur ch or judaism services? More than 4 times per year 07/20/2024 Do you belong to any clubs o r organizations such as baptist groups, unions, fraternal or athletic groups, or school groups? Yes 07/20/2024 How often do you attend meet ings of the clubs or organizations you belong to? More than 4 times per year 07/20/2024 Are you , , di vorced, , never , or living with a partner? 07/20/2024 AUDIT-C Answer Date Recorded Q1: How often do you have a drink containing alcohol? Never 07/20/2024 Q2: How many drinks containi ng alcohol do you have on a typical day when you are drinking? Patient does not drink Q3: How often do you have si x or more drinks on one occasion? Never 07/20/2024 Overall Financial Resource Strain (CARDIA) Answe r Date Recorded How hard is it for you to pa y for the very basics like food, housing, medical care, and heating? Somewhat hard 07/20/2024 PHQ-2 Answer Date Recorded Total Score - Questions 1-9 14 09/16 [facility] - Occupational Stress Questionnaire Answer Date Recorded Do you feel stress - tense, restless, nervous, or anxious, or unable to sleep at night because your mind is troubled all the time - these days? Rather much 07/20/2024 Exercise Vital Sign Answer Date Recorde d On average, how many days pe r week do you engage in moderate to strenuous exercise (like a brisk walk)? 0 days 07/20/2024 On average, how many minutes do you engage in exercise at this level? 0 min 07/20/2024 Hunger Vital Sign Answer Date Recorded Within the past 12 months, y ou worried that your food would run out before you got the money to buy more. Never true 07/21/19 25 Within the past 12 months, t he food you bought just didn't last and you didn't have money to get more. Never true 07/20/2024 PRAPARE - Transportation Answer Date Re corded In the past 12 months, has l ack of transportation kept you from medical appointments or from getting medications? No 09/2024 In the past 12 months, has l ack of transportation kept you from meetings, work, or from getting things needed for daily living? No 07/20/2024 Housing Stability Vital Sign Answer Jj e Recorded In the last 12 months, was t here a time when you were not able to pay the mortgage or rent on time? No 07/20/2024 In the past 12 months, how m any times have you moved where you were living? 0 07/20/2024 At any time in the past 12 m onths, were you homeless or living in a fci (including now)? No 07/20/2024 Education Answer Date Recorded What is the highest level of school you have completed or the highest degree you have received? Some college, no degree 10/08/2021 Sexually Active Control Partners Comments Yes Surgical, None Male Comments No Sex and Gender Information Value Date Recorded Sex Assigned at Not on file Legal Sex Female 7:43 PM CDT Gender Identity Not on file Sexual Orientation Not on file documented as of this encounter Progress Notes * Tessa Rincon APRN, CNP - 10/11/2024 2:28 PM CDT Completed * Yazmin Tsai MA - 10/11/2024 2:28 PM CDT Voicemail was left and Le[employer] message sent notifying pt that her forms are ready for pick up and delivery driver at the front desk receptionist. documented in this encounter Plan of Treatment Upcoming Encounters Date Type Department Care Team (Late st Contact Info) Description 10/18/2024 8:00 AM CDT Office Visit [facility] - Pulmonology & Sleep Medicine - [place] [address] [place] [phone] Ambreen Mendez APRN, FISHING VESSEL [place] [address] [facility] [address] [place] [address] 11/03/2024 8:15 AM CDT Office Visit [facility] - Endocrinology - [place] [address] [facility] [place] [address] Tessa Rincon APRN, FISHING VESSEL [place] [address] [facility] [address] [place] [address] Henrik Jimenez MD [address] [facility] [address] [place] [address] 01/10/2025 10:30 AM CDT Office Visit [facility] Family Medicine - [place] [address] [place] [address] Tessa Rincon APRN, FISHING VESSEL [place] [address] [facility] [address] [place] [address] documented as of this encounter Goals Goal Patient Goal Type Associated Problems Recent Progress Patient-Stated? Author Behavioral Health Behavioral Health On track(2022 4:17 PM CDT) Yes Pattie Carpio, TRANSFORMER SHOP SUPERVISOR Note: I need to cope better with depression and anxiety. Goal/Objective: Increase coping skills. Anticipated Time Frame for Goal Completion: 6 months Goal Reviewed with: patient Readiness to change: Ready to change Department associated with goal: [facility] Steps to achieve goal: [...] filedocumented in this encounter Additional Health Concerns Assessment Noted Time PHQ-9 Depression Total Score: 14 025 8:22 AM CDT documented as of this encounter Care Teams Locomotive Repairer Diesel Relationship Specialty Start Date End Date Tessa Rincon APRN, [place] [address] [facility] [address] [place] [phone] PCP - General Advanced Practice Nurse 04/21/23 Ambreen Mendez APRN, [place] [address] [facility] [address] [place] [address] Nurse Practitioner Advanced Practice Nurse 02/26/24 documented as of this encounter
--- OUTSIDE RECORDS SUMMARY | 2024-10-16 18:12 | XMS_ITS | Clinical Summary ---
Author Organization [facility] Address [address], [address] [place] [address] Phone Care Team Providers Care Property Staff Accountant Name Role Phone Tessa Rincon APRN, JAIRON Primary Care Provid er Ambreen Mendez APRN, CNP Unavailable Allergies Active Allergy Reactions Criticality Noted Date Comments Ciprofloxacin Rash 10/19/2015 Paroxetine Hcl Nausea 10/19/2015 Penicillins Rash 10/19/2015 Ketorolac Tromethamine Shortness of Breath 08/2016 Medications Lancets MiscIndications:Hy poglycemia Use as directed 90 Lancet 3 03/27/20 22 Active Glucose Blood StripIndications:H ypoglycemia 1 Strip by Does not apply route daily. USE DIRECTED 30 Strip 11 03/27/20 22 Active albuterol 108 (90 Base) MCG/ACT Aerosol SolutionIndication s:Moderate persistent asthmatic bronchitis without complication take 2 Puffs by inhalation every 4 hours as needed for Wheezing or Cough. 18 g 3 11/08/19 24 Active ondansetron (ZOFRAN-ODT) 4 MG TABLET DISPERSIBLE Take 1 Tablet by mouth every 8 hours as needed for Nausea - 1st line. 20 Tablet 01/14/20 24 Active pantoprazole (PROTONIX) 40 MG Tablet Delayed ResponseIndication s:Epigastric pain Take 1 Tablet by mouth daily. 90 Tablet 1 01/19/20 24 Active famotidine (PEPCID) 20 MG Tablet Take 20 mg by mouth 2 times daily as needed. 02/01/20 24 Active Fluticasone Furoate-Vilanterol (Breo Ellipta) 200-25 MCG/ACT AEROSOL POWDER, BREATH ACTIVATEDIndicatio ns:Moderate persistent asthmatic bronchitis without complication take 1 Puff by inhalation daily. 3 Each 3 07/19/19 25 Active Umeclidinium Craig (INCRUSE ELLIPTA) 62.5 MCG/ACT AEROSOL POWDER, BREATH ACTIVATEDIndicatio ns:Moderate persistent asthmatic bronchitis without complication take 1 Puff by inhalation daily. 3 Each 3 07/19/19 25 Active levothyroxine (SYNTHROID) 50 MCG TabletIndications: Subclinical hypothyroidism Take 1 Tablet by mouth daily. 90 Tablet 3 08/19/19 25 Active QUEtiapine (SEROquel) 50 MG TabletIndications: Severe episode of recurrent major depressive disorder, without psychotic features (HCC) Take 1 Tablet by mouth nightly. 90 Tablet 1 10/05/19 25 Active acetaminophen (TYLENOL) 500 MG Tablet Take 500 mg by mouth. 025 Discontinu ed(Med List Clean Up) eszopiclone (LUNESTA) 2 MG TabletIndications: Primary insomnia Take 1 Tablet by mouth nightly as needed for Sleep. 30 Tablet 07/19/19 25 025 Discontinu ed(Med List Clean Up) QUEtiapine (SEROquel) 25 MG TabletIndications: Severe episode of recurrent major depressive disorder, without psychotic features (HCC) Take 1 Tablet by mouth nightly. 30 Tablet 08/19/19 25 025 Discontinu ed(Reorder ) fluconazole (DIFLUCAN) 150 MG TabletIndications: Yeast infection of the vagina Take 1 Tablet by mouth once for 1 dose. 1 Tablet 09/22/19 25 025 neomycin-polymyxin -dexamethasone (MAXITROL) 3.5-77218-9.1 SuspensionIndicati ons:Other infective acute otitis externa of left ear Place 2 Drops in left ear 2 times daily for 7 days. 5 mL 09/22/19 25 025 Active Problems Problem Noted Date Diagnosed Date Excessive daytime sleepiness 07/18/2024 Asthmatic bronchitis 07/18/2024 Primary insomnia 02/26/2024 SOB (shortness of breath) 02/26/2024 Mixed simple and mucopurulent chronic bronchitis 02/26/2024 Personal history of tobacco use 10/18/2020 Cough 10/04/2020 Simple chronic bronchitis 10/04/2020 Anxiety 12/08/2016 Physical exam, annual (Adult) 11/10/2016 Chronic migraine without aur a without status migrainosus, not intractable 11/10/2016 Depression 11/10/2016 Pachyderma of larynx 10/19/2015 Snoring 10/19/2015 Persistent hypersomnia 10/19/2015 Hypertrophy of inferior nasal turbinate 10/19/19 16 PNAR (perennial non-allergic rhinitis) 6 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 10/19/2015 Resolved Problems Problem Noted Date Diagnosed Date Resolved Date Sore throat 07/22/2017 03/09/2020 Acute viral pharyngitis 10/19/201502/16 Encounters Date Type Department Care Team Description 10/11/2024 Documentation Only [facility] [address] [place] [address] Tessa Rincon APRN, JAIRON 10/06/2024 Results Follow-Up [facility] [address] [facility] [place] [address] Tessa Rincon APRN, JAIRON TRIIODOTHYRININE (T3) FREE, THYROXINE (T4) FREE, THYROID STIMULATING HORMONE (TSH) 10/04/2024 9:10 AM CDT Lab [facility] [address] [place] [address] [facility] y Subclinical hypothyroidism (Primary Dx) Discharge Disposition: Discharged to home or Selfcare 10/04/2024 8:15 AM CDT Office Visit [facility] [address] [place] [address] Tessa Rincon APRN, TILE MACHINE OPERATOR Subclinical hypothyroidism (Primary Dx); Insomnia, unspecified type; Severe episode of recurrent major depressive disorder, without psychotic features (HCC); Acute pain of right shoulder; Non-recurrent acute serous otitis media of left ear Discharge Disposition: Discharged to home or Selfcare 10/04/2024 Travel 09/21/2024 3:30 PM CDT Urgent Care Visit [facility] [address] [place] [address] Jess Machuca APRN, CNP Other infective acute otitis externa of left ear (Primary Dx); Yeast infection of the vagina Discharge Disposition: Discharged to home or Selfcare 09/21/2024 Travel 08/18/2024 10:00 AM CDT Office Visit [facility] [address] [place] [address] Tessa Rincon APRN, CNP Subclinical hypothyroidism (Primary Dx); Abnormal cortisol level; Insomnia, unspecified type; Severe episode of recurrent major depressive disorder, without psychotic features (HCC) Discharge Disposition: Discharged to home or Selfcare 08/17/2024 Travel 08/16/2024 Results Follow-Up [facility] [address] [place] [address] Tessa Rincon APRN, CNP DEHYDROEPIANDROSTERONE SULFATE (DHEA-S), TESTOSTERONE, TOTAL AND FREE, [place] TGRP, ESTRADIOL, Additional followed-up results: 2 08/10/2024 Travel 08/03/2024 Telephone [facility] [address] [place] [address] Tessa Rincon APRN, CNP Need Order 08/02/2024 Telephone [facility] Outpatient [address] [place] [address] Ambreen Mendez APRN, CNP Prior Authorization (Auth Denied-P2P offered//Ordering Provider: Internal/If external office contacted, phone number called: /Spoke to: //Appointment Info:/Clinic: [facility] /Provider: [facility] Appt Date/Time: Jul 7:30 AM/ / //Payor + Plan: [place] [facility] PPO//CPT/Test: 92457/Authorization denied through: MICHAEL //Reason for denial: Your doctor told us that you are feeling tired most of the time. Your do) 07/27/2024 Results Follow-Up [facility] [address] [place] [address] Tessa Rincon APRN, JAIRON CORTISOL 07/25/2024 Nurse Triage [facility] [address] [place] [address] Tessa Rincon APRN, CNP Nausea; Dizziness 07/25/2024 Results Follow-Up [facility] [address] [place] [address] Tessa Rincon APRN, JAIRON CMP (COMPREHENSIVE METABOLIC PANEL), VITAMIN B12, VITAMIN D, 25 HYDROXY TOTAL, Additional followed-up results: 6 07/25/2024 Travel 07/22/2024 Transcribe Orders [facility] [address] [place] [address] Ambreen Mendez APRN, CNP Excessive daytime sleepiness (Primary Dx) 07/22/2024 Transcribe Orders [facility] [address] [place] [address] Ambreen Mendez APRN, CNP Excessive daytime sleepiness (Primary Dx) 07/22/2024 Telephone [facility] [address] [place] [address] Tessa Rincon APRN, CNP 07/21/2024 10:45 AM NETWORK SUPPORT SPECIALIST Office Visit [facility] [address] [place] [address] Tessa Rincon APRN, CNP Insomnia, unspecified type (Primary Dx); Weakness; Myalgia; Vitamin D deficiency; Severe episode of recurrent major depressive disorder, without psychotic features (HCC) Discharge Disposition: Discharged to home or Selfcare 07/20/2024 Travel 07/18/2024 4:00 PM NETWORK SUPPORT SPECIALIST Office Visit [facility] - Pulmonology & Sleep Medicine - [place] [address] [place] [address] Ambreen Mendez APRN, CNP Excessive daytime sleepiness (Primary Dx); Moderate persistent asthmatic bronchitis without complication; Primary insomnia Discharge Disposition: Discharged to home or Selfcare 07/18/2024 Travel from Last 3 Months Immunizations Immunization Administration Dates Next Due Covid-19, Mrna, Lnp-s, PF, 1 00 mcg/0.5 mL Dose (Moderna) 08/04/2020,07/07/2020 TDAP Vaccine 05/10/2018 Family History Medical History Relation Name Comments Congestive Heart Failure Father Asif Diabetes Father Asif Cancer Maternal Grandfather Jamin Heart Attack Maternal Grandfather Jamin Hypertension Maternal Grandfather Jamin Depression Mother Roz Hypertension Mother Roz Relation Name Status Comments Father Asif Alive Maternal Grandfather Jamin Mother Roz Alive Social History Tobacco Use Types Packs/Day Years Used Date Smoking Tobacco: Light Smoker Cigarettes 0.3 25.9 Started: 995; Last attempted to quit: 09/22/2020 Smokeless Tobacco: Never Comments:2 a day Alcohol Use Standard Drinks/Week Comments Not Currently 0 (1 standard drink = 0.6 oz pur e alcohol) [facility] Utilities Answer Date Recorded In the past 12 months has [employer], oil, or water [employer] threatened to shut off services in your home? No 07/20/2024 Social Connection and Isolat ion Panel [NHANES] Answer Date Recorded In a typical week, how many times do you talk on the phone with family, friends, or neighbors? Once a week 07/20/2024 How often do you get togethe r with friends or relatives? Never 07/20/2024 How often do you attend [facility] or muslim services? More than 4 times per year 07/20/2024 Do you belong to any clubs o r organizations such as synagogue groups, unions, fraternal or athletic groups, or [...] Total Score - Questions 1-9 14 09/16 [facility] of Occupat ional [facility] - Occupational Stress Questionnaire Answer Date Recorded [...] were you homeless or living in a [place] health [place] facility (including now)? No 07/20/2024 Education Answer Date [...] Sign Reading Time Taken Comments Blood Pressure 108/82 10/04/2024 8:07 AM CDT Pulse 73 10/04/2024 8:07 AM CDT Temperature 36.4 C (97.6 F) 10/04/2024 8:07 AM CDT Respiratory Rate 16 10/04/2024 8:07 AM CDT Oxygen Saturation 97% 10/04/2024 8:07 AM CDT Inhaled Oxygen Concentration - - Weight 78 kg (172 lb) 10/04/2024 8:07 AM CDT Height 160 cm (5' 3) 10/04/2024 8:07 AM CDT Body Mass Index 30.47 10/04/2024 8:07 AM CDT Plan of Treatment Upcoming Encounters Date Type Department Care Team (Late st Contact Info) Description 10/18/2024 8:00 AM CDT Office Visit [facility] - Pul[facility]ology & Sleep Medicine - [place] [address] [place] [address] Ambreen Mendez APRN, TILE MACHINE OPERATOR [address] [address] 11/03/2024 8:15 AM CDT Office Visit [facility] - Endocrinology - [place] [address] [place] [address] Tessa Rincon APRN, TILE MACHINE OPERATOR #2 [facility] [address] [place] [address] Henrik Jimenez MD [address]2 [facility] [address] [place] [address] 01/10/2025 10:30 AM CDT Office Visit [facility] - Family Medicine [facility] [address] [place] [address] Tessa Rincon APRN, TILE MACHINE OPERATOR [address]2 [facility] [address] [place] [address] Health Maintenance Due Date Last Done Comments Hepatitis C Virus (HCV) Screening 1979 Hepatitis B Immunization (1 of 3 - 19+ 3-dose series) 1998 Pneumococcal Immunization Combined (1 of 2 - PCV) 1998 Influenza Immunization (Season Ended) 2025 Mammogram 03/02/2025 03/02/2024, 06/2021, 12/16/2021, Additional history exists Td Immunization Every 10 Years (Adults With 1 Tdap) 05/10/2028 05/10/2018 Colonoscopy 05/31/2034 05/31/2024 Colorectal Cancer Screening 05/31/2034 Respiratory Syncytial Virus (RSV) Immunization (Adult) (1 - 1-dose 75+ series) 2054 05/31/2024 SARS-COV-2 Immunization Discontinued 08/04/2020, 07/07 Discussion re Starting/Frequency of Mammograms Discontinued 03/02/2024, 12/17/2021, 12/16/2021, Additional history exists Human Papillomavirus (HPV) Immunization Aged Out No longer eligible based on patient's age to complete this topic Meningococcal Immunization (ACWY) Aged Out No longer eligible based on patient's age to complete this topic Rotavirus Immunization Aged Out No lo nger eligible based on patient's age to complete this topic Goals Goal Patient Goal Type Associated Problems Recent Progress Patient-Stated? Author Behavioral Health Behavioral Health On track(2022 4:17 PM CDT) Yes Pattie Carpio, FLAT KNITTER Note: I need to cope better with depression and anxiety. Goal/Objective: Increase coping skills. Anticipated Time Frame for Goal Completion: 6 months Goal Reviewed with: patient Readiness to change: Ready to change Department associated with goal: [facility] Steps to achieve [...] and or cope with anxiety and depression. Procedures Procedure Name Priority Date/Time Associated Diagnosis Comments THYROID STIMULATING HORMONE (TSH) Routine 10/04/2024 Subclinical hypothyroidism THYROXINE (T4) FREE Routine 10/04/2024 Subclinical hypothyroidism TRIIODOTHYRININE (T3) FREE Routine 10/04/2024 Subclinical hypothyroidism FOLLICLE STIMULATING HORMONE (FSH) Routine 08/10/2024 7:40 AM CDT Insomnia, unspecified type Excessive daytime sleepiness Fatigue, unspecified type LUTEINIZING HORMONE Routine 08/10/2024 7:40 AM CDT Insomnia, unspecified type Excessive daytime sleepiness Fatigue, unspecified type ESTRADIOL Routine 08/10/2024 7:40 AM CDT Insomnia, unspecified type Excessive daytime sleepiness Fatigue, unspecified type [facility]OST[facility], T[facility] AND [facility], [facility] Rout[facility] 08/10/2024 7:40 AM CDT Insomnia, unspecified type Excessive daytime sleepiness Fatigue, unspecified type FOLLICLE STIMULATING HORMONE (FSH) Routine 08/10/2024 7:40 AM CDT Insomnia, unspecified type Excessive daytime sleepiness Fatigue, unspecified type LUTEINIZING HORMONE (LH) Routine 025 7:40 AM CDT Insomnia, unspecified type Excessive daytime sleepiness Fatigue, unspecified type ESTRADIOL Routine 08/10/2024 7:40 AM CDT Insomnia, unspecified type Excessive daytime sleepiness Fatigue, unspecified type DEHYDROEPIANDROSTERONE SULFATE (DHEA-S) Routine 08/10/2024 7:40 AM CDT Insomnia, unspecified type Excessive daytime sleepiness Fatigue, unspecified type FREE AND TOTAL TESTOSTERONE Routine 07/17 7:40 AM CDT Insomnia, unspecified type Excessive daytime sleepiness Fatigue, unspecified type UR, CORTISOL, FREE 24 HR, SALAS CORTU Routine 07/30/2024 8:45 AM CDT Abnormal cortisol level CORTISOL Routine 07/27/2024 8:20 AM CDT Abnormal cortisol level CORTISOL Routine 07/25/2024 3:57 PM CDT Weakness Myalgia CBC WITH AUTO DIFFERENTIAL Routine 07/25 8:01 AM CDT Weakness Myalgia THYROXINE (T4) FREE Routine 07/25/2024 8:01 AM CDT Elevated TSH TRIIODOTHYRININE (T3) FREE Routine 07/25 8:01 AM CDT Elevated TSH CORTISOL Routine 07/25/2024 8:01 AM CDT Weakness Myalgia C-REACTIVE PROTEIN (CRP) QUANT Routine 07/25/2024 8:01 AM CDT Weakness Myalgia ERYTHROCYTE SEDIMENTATION RATE (ESR) Routine 07/25/2024 8:01 AM CDT Weakness Myalgia THYROID STIMULATING HORMONE (TSH) Routine 07/25/2024 8:01 AM CDT Weakness Myalgia VITAMIN D, 25 HYDROXY TOTAL Routine 07/16 8:01 AM CDT Weakness Myalgia Vitamin D deficiency VITAMIN B12 Routine 07/25/2024 8:01 AM CDT Weakness Myalgia COMPLETE BLOOD COUNT (CBC) WITH DIFF Routine 07/25/2024 8:01 AM CDT Weakness Myalgia CMP (COMPREHENSIVE METABOLIC PANEL) Routine 07/25/2024 8:01 AM CDT Weakness Myalgia MAMMOGRAM BILATERAL GENERIC 06/2021 12:00 AM CDT from Last 3 Months or Most Recently Relevant to Health Maintenance Results * THYROXINE (T4) FREE (10/04/2024) Only the most recent of2 resultswithin the time period is included. Blood 10/04/2024 Tessa Rincon MAXILLOFACIAL SURGEON, TILE MACHINE OPERATOR CHEMISTRY ORDERABLES Final Result * THYROID STIMULATING HORMONE (TSH) (10/04/2024) Only the most recent of2 resultswithin the time period is included. Blood 10/04/2024 Tessa Strohbeck MAXILLOFACIAL SURGEON, TILE MACHINE OPERATOR CHEMISTRY ORDERABLES Final Result * TRIIODOTHYRININE (T3) FREE (10/04/2024) Only the most recent of2 resultswithin the time period is included. Blood 10/04/2024 Tessa Strohbeck MAXILLOFACIAL SURGEON, TILE MACHINE OPERATOR CHEMISTRY ORDERABLES Final Result * ESTRADIOL (08/10/2024 7:40 AM CDT) ESTRADIOL, SERUM <24 pg/mL 08/10/2024 3:32 PM CDT [facility] Blood Venipuncture / Unknown 08/10/2024 7:40 AM CDT 08/10/2024 8:35 AM CDT Narrative [facility] - 08/10/2024 3:32 PM CDT ESTRADIOL VALUE NORMAL MENSTRUATING FEMALE FOLLICULAR PHASE <24 - 251 pg/mL MID CYCLE PHASE 38 - 649 pg/mL LUTEAL PHASE <24 - 312 pg/mL POST MENOPAUSAL ON HRT <24 - 144 pg/mL POST MENOPAUSAL NOT ON HRT <24 - 28 pg/mL MALES <24 - 44 pg/mL Patients undergoing Fulvestrant therapy should not be tested by this method as it could produce falsely elevated estradiol results. Tessa Rincon APRN, TILE MACHINE OPERATOR CHEMISTRY ORDERABLES Final Result Performing Organization Address [facility] de Phone Number [facility] [address] [place] [address], [place] * LUTEINIZING HORMONE (08/10/2024 7:40 AM CDT) LH 39.3 mIU/mL 08/10/2024 3:3 1 PM CDT [facility] Blood Venipuncture / Unknown 08/10/2024 7:40 AM CDT 08/10/2024 8:35 AM CDT Narrative [facility] - 08/10/2024 3:31 PM CDT Normally Menstruating Females: Follicular Phase: 1.8 - 11.8 Midcycle Peak: 7.6 - 89.1 Luteal Phase: 0.6 - 14.0 Post Menopausal Females without HRT: 5.2 - 62.0 Tessa Rincon MAXILLOFACIAL SURGEON, TILE MACHINE OPERATOR CHEMISTRY ORDERABLES Final Result Performing Organization Address [facility] de Phone Number [facility] [address] [facility] [place] [address], [place] * FOLLICLE STIMULATING HORMONE (FSH) (08/10/2024 7:40 AM CDT) FSH 79.8 mIU/mL 08/10/2024 4:4 2 PM CDT [facility] Blood Venipuncture / Unknown 08/10/2024 7:40 AM CDT 08/10/2024 8:35 AM CDT Narrative [facility] - 08/10/2024 4:42 PM CDT Normally Menstruating Females Follicular Phase 3.0 - 8.1 Mid-cycle Peak 2.6 - 16.7 Luteal Phase 1.4 - 5.5 Postmenopausal Females 26.7 - 133.4 us Tessa Rincon APRN, CNP CHEMISTRY ORDERABLES Final Result [facility] [address] [place] [address], * TESTOSTERONE, TOTAL AND FREE, [place] TGRP (08/10/2024 7:40 AM CDT) TESTOSTERONE, FREE 0.26 <0.13 - 0.95 ng/dL 08/16/2024 2:49 PM CDT [facility] Comment: ADDITIONAL INFORMATION This test was developed and its performance characteristics determined by [facility] in a manner consistent with CLIA requirements. This test has not been cleared or approved by the U.S. Food and Drug Administration. TESTOSTERONE, TOTAL 12 8 - 60 ng/dL 08/16/2024 2:49 PM CDT [facility] Comment: ADDITIONAL INFORMATION Testing performed by Liquid Chromatography-Tandem Mass Spectrometry (LC-MS/MS). This test was developed and its performance characteristics determined by [facility] in a manner consistent with CLIA requirements. This test has not been cleared or approved by the U.S. Food and Drug Administration. Test Performed by: [facility] [address] [place] [address] Percussion Teacher: Dominique Conner Ph.D.; CLIA# [id number] Blood Venipuncture / Unknown 08/10/2024 7:40 AM CDT 08/10/2024 8:35 AM CDT Tessa Rincon APRN, CNP LAB SEND OUTS Lazara l Result [facility] [place] * DEHYDROEPIANDROSTERONE SULFATE (DHEA-S) (08/10/2024 7:40 AM CDT) Pathologist [facility] DHEA Sulfate 87 30 - 512 ug/dL 08/10/2024 4:41 PM CDT [facility] Blood Venipuncture / Unknown 08/10/2024 7:40 AM CDT 08/10/2024 8:35 AM CDT Tessa Rincon APRN, CNP CHEMISTRY ORDERABLES Final Result Performing Organization Address City/[facility]/ZIP Co de Phone Number [facility] [address] [place] [address], * UR, CORTISOL, FREE 24 HR, SALAS CORTU (07/30/2024 8:45 AM CDT) UR, CORTISOL 16 3.5 - 45 mcg/24 h 08/03/2024 10:11 PM CDT [facility] COLLECTION DURATION (h) 24 h 08/03/2024 10:11 PM CDT [facility] URINE VOLUME (mL) 600 mL 025 10:11 PM CDT [facility] Comment: ADDITIONAL INFORMATION This test was developed and its performance characteristics determined by [facility] in a manner consistent with CLIA requirements. This test has not been cleared or approved by the U.S. Food and Drug Administration. Test Performed by: [facility] [address] [facility] [place] [address] Percussion Teacher: Dominique Conner Ph.D.; CLIA# [id number] Urine Non-Phlebotomy Collection / Unknown 07/30/2024 8:45 AM CDT 07/31/2024 8:58 AM CDT Tessa Rincon APRN, CNP LAB SEND OUTS Lazara l Result [facility] * CORTISOL (07/27/2024 8:20 AM CDT) Only the most recent of3 resultswithin the time period is included. CORTISOL 1.1 mcg/dL 07/27/2024 9:5 7 AM CDT [facility] Blood Venipuncture / Unknown 07/27/2024 8:20 AM CDT 07/27/2024 9:09 AM CDT Narrative [facility] - 07/27/2024 9:57 AM CDT AM: 4 TO 19 mcg/dL PM: Approx. Half of AM Value Tessa Rincon APRN, CNP CHEMISTRY ORDERABLES Final Result Performing Organization Address City/[facility]/ZIP Co de Phone Number [facility] [address] [place] [address] * VITAMIN D, 25 HYDROXY TOTAL (07/25/2024 8:01 AM CDT) VITAMIN D, 25 HYDROX 20.9 ng/mL 07/25/2024 9:21 AM CDT [facility] Blood Venipuncture / Unknown 07/25/2024 8:01 AM CDT 07/25/2024 8:31 AM CDT Narrative [facility] - 07/25/2024 9:21 AM CDT Published reference ranges for Vitamin D vary depending on time and place and method of testing, and on patient's age, sex, ethnicity and levels of other measured analytes such as parathormone, calcium and phosphorus. The result should be evaluated in conjunction with clinical findings and suspicions. [place] of [employer] and Endocrine Clinical Practice Guidelines: Status Vitamin D levels (ng/mL) Deficient <=20 At risk of inadequacy 21-29 Sufficient 30-100 Centers of Disease Control and Prevention Guidelines: Status Vitamin D levels (ng/mL) Deficient <13 At risk of inadequacy 13-19 Sufficient 20-50 Possibly harmful >50 References: [place] [employer], 2010 Dietary reference intakes for calcium and vitamin D. [place]: The National Academies Press. Jocelyn M, Denice N, Faviola COTTO, et al., Evaluation, treatment, and prevention of Vitamin D deficiency: an Endocrinology Clinical Practice Guideline. JCEM 2011 96: 7 2620-7303. Joseline A, Giuseppe C, Kavon D, et al., Vitamin D Status: [place], , [facility] data brief, no. 59, MD [place]: National Center for Health Statistics. 2011. Tessa Rincon APRN, CNP CHEMISTRY ORDERABLES Final Result [facility] [address] [place] [address] * (ABNORMAL) CBC WITH AUTO DIFFERENTIAL (07/25/2024 8:01 AM CDT) WBC 8.47 4.00 - 12.00 10(3)/mcL 07/25/2024 8:37 AM CDT [facility] RBC 4.34 3.80 - 5.30 10(6)/mcL 07/25/2024 8:37 AM CDT [facility] HEMOGLOBIN (HGB) 12.9 12.0 - 15.8 g/dL 07/25/2024 8:37 AM CDT [facility] HEMATOCRIT (HCT) 39.7 36.0 - 47.0 % 07/25/2024 8:37 AM CDT [facility] MCV 91.5 82.0 - 96.0 fL 07/25/2024 8:37 AM CDT [facility] MCH 29.7 26.0 - 34.0 pg 07/25/2024 8:37 AM CDT [facility] MCHC 32.5 31.0 - 36.0 g/dL 07/25/2024 8:37 AM CDT [facility] PLATELET COUNT 332 140 - 440 10(3)/mcL 07/25/2024 8:37 AM CDT [facility] RDW 12.5 11.8 - 15.5 % 07/25/2024 8:37 AM CDT [facility] MPV 10.4 9.7 - 12.4 fL 07/25/2024 8:37 AM CDT [facility] NEUTROPHILS 65.7 47.0 - 73.0 % 07/25/2024 8:37 AM CDT [facility] LYMPHOCYTES 27.0 18.0 - 42.0 % 07/25/2024 8:37 AM CDT [facility] MONOCYTES 5.0 4.0 - 12.0 % 07/25/2024 8:37 AM CDT [facility] EOSINOPHILS 1.2 0.0 - 5.0 % 07/25/2024 8:37 AM CDT [facility] BASOPHILS 1.1(H) 0.0 - 1.0 % 07/25/2024 8:37 AM CDT [facility] ABSOLUTE NEUTROPHILS 5.57 1.60 - 7.70 10(3)/mcL 07/25/2024 8:37 AM CDT [facility] ABSOLUTE LYMPHOCYTES 2.29 1.30 - 3.20 10(3)/mcL 07/25/2024 8:37 AM CDT [facility] ABSOLUTE MONOCYTES 0.42 0.20 - 1.00 10(3)/mcL 07/25/2024 8:37 AM CDT [facility] ABSOLUTE EOSINOPHIL 0.10 0.00 - 0.40 10(3)/mcL 07/25/2024 8:37 AM CDT [facility] ABSOLUTE BASOPHILS 0.09 0.00 - 0.10 10(3)/mcL 07/25/2024 8:37 AM CDT [facility] NRBC PER 100 WBC 0 07/26/19 8:37 AM CDT [facility] Blood Venipuncture / Unknown 07/25/2024 8:01 AM CDT 07/25/2024 8:32 AM CDT Tessa Rincon APRN, JAIRON HEMATOLOGY ORDERABLE S Final Result [facility] [address] [place] [address] * VITAMIN B12 (07/25/2024 8:01 AM CDT) VITAMIN B12 558 213 - 816 pg/mL 07/25/2024 9:21 AM CDT [facility] Blood Venipuncture / Unknown 07/25/2024 8:01 AM CDT 07/25/2024 8:31 AM CDT Tessa Rincon APRN, JAIRON CHEMISTRY ORDERABLES Final Result Performing Organization Address City/[facility]/ZIP Co de Phone Number [facility] [address] [place] [address] * (ABNORMAL) ERYTHROCYTE SEDIMENTATION RATE (ESR) (07/25/2024 8:01 AM CDT) ESR (SED RATE, ERYTHROCYTE SEDIMENTATION RATE) 34(H) <20 mm/h 07/25/2024 9:42 AM CDT [facility] Comment: Patients presenting with increased level of fibrinogen, gamma globulins, or abnormally shaped RBCs could affect the results for the erythrocyte sedimentation rate (ESR). Results should be clinically correlated. Blood Venipuncture / Unknown 07/25/2024 8:01 AM CDT 07/25/2024 8:32 AM CDT us Tessa Rincon MAXILLOFACIAL SURGEON, TILE MACHINE OPERATOR HEMATOLOGY ORDERABLE S Final Result [facility] [place] [address] * (ABNORMAL) CMP (COMPREHENSIVE METABOLIC PANEL) (07/25/2024 8:01 AM CDT) SODIUM 140 136 - 145 mmol/L 07/25/2024 8:57 AM CDT [facility] POTASSIUM 4.3 3.5 - 5.1 mmol/L 07/25/2024 8:57 AM CDT [facility] CHLORIDE 105 98 - 107 mmol/L 07/25/2024 8:57 AM CDT [facility] CO2, VENOUS 27 22 - 30 mmol/L 07/25/2024 8:57 AM CDT [facility] ANION GAP 12.3 <18.0 mmol/L 07/25/2024 8:57 AM CDT [facility] GLUCOSE 91 70 - 99 mg/dL 07/25/2024 8:57 AM CDT [facility] BUN 16 5 - 18 mg/dL 07/25/2024 8:57 AM CDT [facility] CREATININE, BLOOD 0.91 0.60 - 1.00 mg/dL 07/25/2024 8:57 AM CDT [facility] BUN/CREATININE RATIO 18 12 - 20 ratio 07/25/2024 8:57 AM CDT [facility] TOTAL PROTEIN 8.4(H) 6.0 - 8.0 g/dL 07/25/2024 8:57 AM CDT [facility] ALBUMIN 4.4 3.5 - 5.0 g/dL 07/25/2024 8:57 AM CDT [facility] A/G RATIO 1.1 1.0 - 2.2 07/25/2024 8:57 AM CDT [facility] CALCIUM 9.4 8.7 - 10.5 mg/dL 07/25/2024 8:57 AM CDT [facility] T BILI 0.7 0.2 - 1.2 mg/dL 07/25/2024 8:57 AM CDT [facility] SGOT (AST) 24 <43 U/L 07/25/2024 8:57 AM CDT [facility] SGPT (ALT) 20 <56 U/L 07/25/2024 8:57 AM CDT [facility] ALKALINE PHOSPHATASE 119 40 - 150 U/L 07/25/2024 8:57 AM CDT [facility] IS THE PATIENT REQUIRED TO BE FASTING? No 07/25/2024 8:57 AM CDT [facility] GFR, ESTIMATED >60 >=60 07/25/2024 8:57 AM CDT [facility] Comment: Creatinine Clearance is the preferred criteria for selecting drug dose adjustments in renally impaired patients. The GFR is provided as additional pertinent clinical information. GFR is reported in mL/min/1.73 sq m. Calculation based on the Chronic Kidney Disease Epidemiology Collaboration (CKD- EPI) equation refit without adjustment for race. GFR, EST. >60 >=60 025 8:57 AM CDT [facility] GFR, EST. NONAFRICAN >60 >=60 07/25/2024 8:57 AM CDT [facility] Blood Venipuncture / Unknown 07/25/2024 8:01 AM CDT 07/25/2024 8:32 AM CDT us Tessa Rincon MAXILLOFACIAL SURGEON, TILE MACHINE OPERATOR CHEMISTRY ORDERABLES Final Result [facility] [address] [facility] [place] [address] * C-REACTIVE PROTEIN (CRP) QUANT (07/25/2024 8:01 AM CDT) C-REACTIVE PROTEIN <0.10 <0.50 mg/dL 07/25/2024 10:02 AM CDT [facility] Blood Venipuncture / Unknown 07/25/2024 8:01 AM CDT 07/25/2024 8:31 AM CDT us Tessa Rincon APRN, CNP CHEMISTRY ORDERABLES Final Result [facility] [address] [place] [address] * MAMMOGRAM BILATERAL MISCELLANEOUS (12/17/2021 12:00 AM CDT) 12/17/2021 us Not On File Provider IMG MAMMO ORDERABLES Final Result Performing Organization Address City/[facility] Co de Phone Number SCAN from Last 3 Months or Most Recently Relevant to Health Maintenance Insurance [facility] Care Teams Property Staff Accountant Relationship Specialty Start Date End Date Tessa Rincon APRN, CNP #[address] [phone] PCP - General Advanced Practice Nurse 04/21/23 Ambreen Mendez, DARLINE, TILE MACHINE OPERATOR [address] [place] [address] Nurse Practitioner Advanced Practice Nurse 02/26/24
--- OUTSIDE RECORDS SUMMARY | 2024-10-16 18:12 | XMS_ITS | Clinical Summary ---
Author Organization [facility] Address [address] [place] [address] Care Team Providers Care Data Warehousing Engineer Name Role Phone BaileeTessa graves DARLINE-HOME IMPROVEMENT ADVISOR Primary Care Provide r Source Comments [facility],non-owned Affiliates and Associated Physician Practices is amultiple site organization consisting of ambulatory clinics and hospital sitesin [place], [place], [place] and [place]. This disclosure is being madepursuant to the Care Everywhere program and may not contain all information available regarding this patient. Last updated 18.[facility] Allergies Active Allergy Reactions Criticality Noted Date Comments Ciprofloxacin Rash Medium 07/31/2016 Paroxetine Other 05/09/2022 Anxiety and nervousness Ketorolac Shortness of Breath High 07/31/2016 Medications * Be aware that medications may not be up to date on this document. Alwaysverify current medications with the patient. albuterol HFA (PROVENTIL;VENT ZINA;PROAIR) 108 (90 BASE) MCG/ACT inhalerIndicati ons:Acute bronchitis, unspecified organism Inhale 2 Puffs by mouth every 4 hours as needed for Shortness of Breath, Wheezing or Cough 1 Inhaler 08/01/19 17 Active fluticasone-sandro anterol (Breo Ellipta) 200-25 MCG/ACT inhaler INHALE 1 PUFF BY MOUTH ONCE DAILY 10/09/19 22 Active HYDROcodone-shaquille taminophen (Bapchule) 5-325 MG tablet Take 1 (one) tablet by mouth every 6 hours as needed for Pain Active promethazine (Phenergan) 6.25 MG/5ML solution Take 5 mL by mouth every 6 hours as needed for Nausea/Vomiting Active SUMAtriptan (Imitrex) 100 MG tablet Take 1 (one) tablet by mouth daily as needed - may repeat one time for Migraine No more than 2 doses in 24 hours. Active DULoxetine (Cymbalta) 30 MG capsule Take 1 (one) capsule by mouth once daily 07/30/19 23 Active escitalopram (Lexapro) 5 MG tablet Take 1 (one) tablet by mouth once daily 08/05/19 23 Active Nurtec 75 MG tablet DISSOLVE 1 TABLET BY MOUTH ONCE DAILY NEEDED FOR MIGRAINE FOR UP TO 30 DAYS 07/23/19 23 Active oxybutynin (Ditropan) 5 MG tablet TAKE 1 TABLET BY MOUTH EVERYDAY AT BEDTIME 30 tablet 1 08/17/19 23 Active ondansetron, disintegrating, (Zofran ODT) 4 MG tablet Take 1 (one) tablet by mouth every 6 hours as needed for Nausea/Vomiting Allow tablet to dissolve on the tongue 20 tablet 01/24/20 24 Active Estazolam 2 MG Take 2 mg by mouth 0 24 Active famotidine (Pepcid) 20 MG tabletIndicatio ns:Gastroesopha geal Reflux Disease,Heartbu rn Take 1 (one) tablet by mouth once daily as needed for Heartburn Reasons: Gastroesophageal Reflux Disease, Heartburn 30 tablet 03/07/20 24 Active pantoprazole EC (Protonix) 40 MG tabletIndicatio ns:Gastroesopha geal Reflux Disease,Heartbu rn Take 1 (one) tablet by mouth 2 times daily Reasons: Gastroesophageal Reflux Disease, Heartburn 180 tablet 04/08/20 24 Active Active Problems Problem Noted Date Diagnosed Date Insomnia 10/12/2023 Right sided sciatica 04/07/2023 Anxiety 12/08/2016 Chronic migraine without aur a without status migrainosus, not intractable 11/10/2016 Depression 11/10/2016 Persistent hypersomnia 10/19/2015 Resolved Problems Problem Noted Date Diagnosed Date Resolved Date Cough 10/04/2020 07/09/2022 Family History Medical History Relation Name Comments Cancer - Colon Maternal Grandfather Diabetes - Type 2 Maternal Grandmother Diabetes - Type 2 Paternal Grandmother Relation Name Status Comments Maternal Grandfather Maternal Grandmother Paternal Grandmother Social History Tobacco Use Types Packs/Day Years Used Date Smoking Tobacco: Former Cigarettes 0.8 25 Smokeless Tobacco: Never Tobacco Cessation:Counseling Given: Not Answered Alcohol Use Standard Drinks/Week Comments Not Currently 0 (1 standard drink = 0.6 oz pur e alcohol) ocassionally AUDIT-C Answer Date Recorded Q1: How often do you have a drink containing alcohol? Never 01/24/2024 Q2: How many drinks containi ng alcohol do you have on a typical day when you are drinking? Patient does not drink Q3: How often do you have si x or more drinks on one occasion? Never 01/24/2024 Comments No Sex and Gender Information Value Date Recorded Sex Assigned at Not on file Legal Sex Female 2:57 PM CDT Gender Identity Female 05/31/2024 8:45 AM WATER PLUMBER Sexual Orientation Not on file Last Filed Vital Signs Vital Sign Reading Time Taken Comments Blood Pressure 123/87 05/31/2024 10:15 AM WATER PLUMBER Pulse 57 05/31/2024 10:15 AM WATER PLUMBER Temperature 36.2 C (97.2 F) 05/31/2024 10:00 AM WATER PLUMBER Respiratory Rate 13 05/31/2024 10:15 AM WATER PLUMBER Oxygen Saturation 96% 05/31/2024 10:15 AM WATER PLUMBER Inhaled Oxygen Concentration - - Weight 72.6 kg (160 lb) 05/31/2024 9:19 AM WATER PLUMBER Height 160 cm (5' 3) 05/31/2024 9:19 AM WATER PLUMBER Body Mass Index 28.34 05/31/2024 9:19 AM WATER PLUMBER Plan of Treatment Health Maintenance Due Date Last Done Comments COLOGUARD (AGES 45-75) - COLON CA SCREENING 1979 CT COLONOGRAPHY - COLON CA SCREENING 1980 FIT - COLON CA SCREENING 1979 FLEX SIG - COLON CA SCREENING 1979 HIV SCREENING 1994 HEPATITIS C SCREENING 04/20/1997 DTAP/TDAP/TD VACCINES (1 - Tdap) 1998 HEPATITIS B VACCINE (1 of 3 - 19+ 3-dose series) 1998 COVID-19 VACCINE ( season) 2024 08/04/2020, 07/07/2020 DEPRESSION SCREENING 05/18/2024 INFLUENZA VACCINE (Season Ended) 2025 MAMMOGRAM 03/02/2026 03/02/2024, 02/15, 12/16/2021, Additional history exists SCREENING FOR DIABETES 01/23/2027 01/24/2024 LIPID TESTING 03/21/2027 03/21/2022 ZOSTER VACCINE (1 of 2) 2029 COLONOSCOPY - COLON CA SCREENING 05/31/2029 05/31/2024, 05/31/2024, 05/31/2024 Colorectal Cancer Screening 05/31/2029 COLON MONITORING 05/31/2034 05/31/2024, , 05/31/2024 HIB VACCINE Aged Out No longer eligi ble based on patient's age to complete this topic HPV VACCINE Aged Out No longer eligi ble based on patient's age to complete this topic MENINGOCOCCAL (Group B) VACCINE SHARED DECISION-MAKING Aged Out No longer eligible based on patient's age to complete this topic MENINGOCOCCAL GROUPS A/C/Y/W VACCINE Aged Out No longer eligible based on patient's age to complete this topic PNEUMOCOCCAL VACCINE Aged Out No long er eligible based on patient's age to complete this topic Procedures Procedure Name Priority Date/Time Associated Diagnosis Comments ENDOSCOPY, COLON, SCREENING Routine 05/31/2024 9:29 AM WATER PLUMBER Colon cancer screening COMPREHENSIVE METABOLIC PANEL STAT 01/24/2024 10:39 AM CDT from Last 3 Months or Most Recently Relevant to Health Maintenance Results * Endoscopy, Colon, Screening (05/31/2024 9:29 AM WATER PLUMBER) Report Endoscopy POC _ Patient Name: Florencia Lugo Procedure Date: 05/31/2024 9:29 AM Date of : 1980 Admit Type: Outpatient Age: 44 Gender: Female Ethnicity: Not or Race: White Attending MD: Yoko Johansen MD, [id number] _ Procedure: Colonoscopy Indications: Screening for colorectal malignant neoplasm Providers: Yoko Johansen MD (Doctor), Hilario Luo RN, Radha Main, Aircraft De Icer Installer Patient Profile: 44F presents for avg risk screening. no prior exams Referring MD: Diane Rincon (Referring MD) Medicines: Monitored Anesthesia Care Complications: No immediate complications. _ Estimated Blood Loss: Estimated blood loss was minimal. Procedure: Pre-Anesthesia Assessment: - Prior to the procedure, a History and Physical was performed, and patient medications and allergies were reviewed. The patient's tolerance of previous anesthesia was also reviewed. The risks and benefits of the procedure and the sedation options and risks were discussed with the patient. All questions were answered, and informed consent was obtained. Prior Anticoagulants: The patient has taken no anticoagulant or antiplatelet agents. ASA Grade Assessment: II - A patient with mild systemic disease. After reviewing the risks and benefits, the patient was deemed in satisfactory condition to undergo the procedure. After I obtained informed consent, the scope was passed under direct vision. Throughout the procedure, the patient's blood pressure, pulse, and oxygen saturations were monitored continuously. The Colonoscope was introduced through the anus and advanced to the cecum, identified by appendiceal orifice and ileocecal valve. The colonoscopy was performed without difficulty. The patient tolerated the procedure well. The quality of the bowel preparation was adequate to identify polyps greater than 5 mm in size. The ileocecal valve, appendiceal orifice, and rectum were photographed. Impression: - One 8 mm polyp in the descending colon, removed with a cold snare. Resected and retrieved. - The examination was otherwise normal. Findings: The perianal and digital rectal examinations were normal. An 8 mm polyp was found in the descending colon. The polyp was sessile. The polyp was removed with a cold snare. Resection and retrieval were complete. The exam was otherwise without abnormality. _ Recommendation: - Patient has a contact number available for emergencies. The signs and symptoms of potential delayed complications were discussed with the patient. Return to normal activities tomorrow. Written discharge instructions were provided to the patient. - Resume previous diet. - Repeat colonoscopy in 5 years for surveillance based on pathology results. Procedure Code(s): --- Professional --- 53545, Colonoscopy, flexible; with removal of tumor(s), polyp(s), or other lesion(s) by snare technique --- Technical --- 72563, Colonoscopy, flexible; with removal of tumor(s), polyp(s), or other lesion(s) by snare technique Diagnosis Code(s): --- Professional --- Z12.11, Encounter for screening for malignant neoplasm of colon D12.4, Benign neoplasm of descending colon --- Technical --- Z12.11, Encounter for screening for malignant neoplasm of colon D12.4, Benign neoplasm of descending colon CPT copyright 2020 [employer]. All rights reserved. The codes documented in this report are preliminary and upon stoneworking belt sander review may be revised to meet current compliance requirements. Yoko Johansen MD 05/31/2024 9:56:10 AM This report has been signed electronically. Number of Addenda: 0 Note Initiated On: 05/31/2024 9:29 AM [facility] 05/31/2024 9:29 AM WATER PLUMBER Narrative Procedure Note Yoko Johansen MD - 05/31/2024 9:56 AM CST Colonoscopy Desc colon polyp/adenoma resected Rpt 5 yrs pending path D/w florencia us Yoko Johansen MD GI PROCEDURE ORDERABLES Edited R esult - Final [facility] * (ABNORMAL) COMPREHENSIVE METABOLIC PANEL (01/24/2024 10:39 AM CDT) Glucose 93 70 - 105 mg/dL 01/24/2024 10:57 AM CDT [facility] Sodium 141 136 - 145 mmol/L 01/24/2024 10:57 AM CDT [facility] Potassium 3.9 3.5 - 5.1 mmol/L 01/24[facility]2024 10:[facility] Chloride 110(H) 98 - 107 mmol/L 01/24/2024 10:57 [facility] CO2 20(L) 22 - 29 mmol/L 01/24/2024 10:57 AM CDT [facility] Calcium 9.4 8.4 - 10.4 mg/dL 01/24/2024 10:57 AM CDT [facility] Anion Gap 11 6 - 16 mmol/L 01/24/2024 10:57 AM CDT [facility] BUN 12 5.3 - 18.7 mg/dL 01/24/2024 10:57 AM CDT [facility] Creatinine 0.89 0.57 - 1.11 mg/dL 01/24/2024 10:57 [facility] Alkaline Phosphatase 104 40 - 150 U/L 01/24/2024 10:57 AM CDT [facility] ALT 15 0 - 55 U/L 01/24/2024 10:57 AM CDT [facility] AST 17 5 - 34 U/L 01/24/2024 10:57 [facility] Protein Total 7.2 6.4 - 8.3 gm/dL 01/24/2024 10:57 AM CDT [facility] Albumin 3.7 3.4 - 5.0 gm/dL 01/24/2024 10:57 [facility] Bilirubin Total 0.4 0.2 - 1.2 mg/dL 01/24/2024 10:57 AM CDT [facility] eGFR by CKD-EPI 82(L) >=90 mL/min/1.7 3 m2 01/24/2024 10:57 AM CDT [facility] Blood BLOOD SPECIMEN / Unknown Venipuncture / Unknown 01/24/2024 10:39 AM CDT 01/24/2024 10:41 AM CDT Irene Son PA-C LAB - CHEMISTRY ORDERABL ES Final Result [facility] [address] [place] [address] from Last 3 Months or Most Recently Relevant to Health Maintenance Insurance [facility] Address: [address] [address] Care Teams Data Warehousing Engineer Relationship Specialty Start Date End Date Tessa Rincon APRN-HOME IMPROVEMENT ADVISOR [address] [phone] PCP - General Nurse Practitioner 01/23/24
--- OUTSIDE RECORDS SUMMARY | 2024-10-16 18:13 | XMS_ITS | CONTINUITY OF CARE DOCUMENT ---
Author Name zakiya sigala Address Unknown Organization [facility] Address [address] [place] [address] Phone [phone] Care Team Providers Care Lumber Racker Name Role Phone Pam MEYERS, Evert Unavailable STROCARLOS EDUARDO PAINTING DEPARTMENT SUPERVISOR, PRIYA R Unavailable [phone] STROHBECK PAINTING DEPARTMENT SUPERVISOR, PRIYA R Unavailable PROBLEMS Condition Status Date Provider Notes Cardiology examination active Evert Orozco MD Palpitations active Evert Orozco MD Sinus bradycardia active Evert Orozco MD HTN borderline active Evert Orozco MD Chronotropic incompetence active Evert chew MD Asthma active Felicitas Lacy PAINTING DEPARTMENT SUPERVISOR ENCOUNTERS Date Type Provider Location Encounter Diag nosis - In-person encounter Office Visit Evert Orozco MD [facility] Asthma - In-person encounter Office Visit Evert Orozco MD [facility] Cardiology examinationPalpitationsSinus bradycardiaHTN borderlineChronotropic incompetence VITAL SIGNS Date Observation Value Provider Body Mass Index (Ratio) 26.75 kg/m2 Jerome Orozco MD blood pressure, cuff size regular Vi nida Sarmienot blood pressure, diastolic 95 mm[Hg] Vi nida Sarmiento blood pressure, systolic 132 mm[Hg] Vip in [place] respiratory rate E&M 16 /min [facility] 50 /min Victor Hugo [facility] oxygen saturation, oximetry 100 % [facility] weight E&M 151 [lb_av] [facility] height E&M 63 [in_i] Victor Hugojunior [...] Payer name Policy type / Coverage type Lamar red democrat ID [facility] [id number] ADVANCE DIRECTIVES Name Date DISCUSSED - NO [...] Provider Procedure Notes S tatus EKG Evert Orozco MD complete d
--- OUTSIDE RECORDS SUMMARY | 2024-10-16 18:13 | XMS_ITS | Clinical Summary ---
Author Organization [facility] Address [address] [place] [address] Care Team Providers Care Student Ministries Director Name Role Phone Tessa Rincon NP Primary [...] 2 (two) times a day as needed 4 Active Active Problems Problem Noted Date Diagnosed [...] Immunization Administration Dates Next Due Tdap 05/10/2018 Surgical History Surgery Date Site/Laterality Comments TOTAL ABDOMINAL HYSTERECTOMY Hysterectomy, total TUBAL LIGATION tubal ligation Medical History Medical History Date Comments Anxiety GERD (gastroesophageal reflux disease) Asthma Migraines Family History Medical History Relation Name Comments Heart attack Maternal Grandfather Jamin Mishra Arthritis Maternal Grandmother Mechelle Mishra Diabetes Maternal Grandmother Mechelle Mishra Cancer Other 1 Family history of Cancer, unknown; Diabetes Other 2 Family history of Diabetes mellitus; Colon cancer Paternal Grandfather Velasquez Reyna Early Paternal Grandfather Velasquez Reyna Heart attack Paternal Grandfather Velasquez Reyna Arthritis Paternal Grandmother Rosa Isela Byrd Diabetes Paternal Grandmother Rosa Isela Byrd Relation Name Status Comments Maternal Grandfather Jamin Obrienson Maternal Grandmother Mechelle Mishra Other 1 Other 2 Paternal Grandfather Velasquez Reyna Paternal Grandmother Rosa Isela Byrd Social History Tobacco Use Types Packs/Day Years [...] on file Legal Sex Female 4:07 AM [employer] Gender Identity Not on file Sexual Orientation Not on file Obstetrics History Para Term AB IAB SAB Ectopic Multiple Livin g Live Births 5 4 0 4 1 1 4 4 Date Outcome GA Total Labor Labor/2nd/3rd Weight Sex Type Anes PTL Jada A1 A5 Name Clin SAB 997 32w 0d 1.843 kg (4 lb 1 oz) M Vag-S pont Living Complications:Pre eclampsia 003 35w 0d 3.062 kg (6 lb 12 oz) M Vag-S pont Living Complications:Premature Rupt ure of Membranes 008 36w 0d 3.147 kg (6 lb 15 oz) M Vag-S pont Living Complications:Premature Rupt ure of Membranes 012 35w 0d 2.693 kg (5 lb 15 oz) F Vag-S pont Living Complications:Pre eclampsia Last Filed Vital Signs Vital Sign Reading [...] 01/20/2024 11:15 AM CDT Plan of Treatment Health Maintenance Due Date Last Done Comments Colon Cancer Screening-Colonoscopy 1979 Depression Screening 1979 Hepatitis C Screening 1979 Hepatitis B Screening 1997 Regular Well Visit/Exam 18-64 1997 Pneumococcal vaccine <65 (1 of 2 - PCV) 1998 Covid-19 Vaccine (3 - season) 2024 08/04/2020, 07/07/2020 Influenza Vaccine (Season Ended) 2025 Breast Cancer Screening-Mammogram 03/02/2025 03/02/2024, 12/16/2021, 12/16/2021, Additional history exists DTaP/Tdap/Td Vaccine (2 - Td or Tdap) 05/10/2028 05/10/2018 HPV Vaccines Aged Out No longer eligi ble based on patient's age to complete this topic Procedures Procedure Name Priority Date/Time Associated Diagnosis Comments SCREENING MAMMOGRAM BILATERAL W VITO Schedule Routine, Read Routine (OP Routine) 03/02/2024 10:54 AM CDT Encounter for screening mammogram for malignant neoplasm of breast from Last 3 Months or Most Recently Relevant to Health Maintenance Results * Screening Mammogram Bilateral W Vito (03/02/2024 10:54 AM CDT) Anatomical Region Laterality [...] PM CDT EXAMINATION: SCREENING MAMMOGRAM BILATERAL W VITO ORDERING HEALTHCARE PROVIDER: GAUDENCIO DIAZ HISTORY: Routine screening mammography. COMPARISON: 12/16/2021 TECHNIQUE: [...] There has been no suspicious interval change. Gaudencio Roz Guzmánuer DO IMG MAMMO PROCEDURES Fi nal Result from Last 3 Months or Most Recently Relevant to Health Maintenance [place] [place] [employer] [place] [facility] Care Teams Student Ministries Director Relationship Specialty Start Date End Date Tessa Rincon NP [address] [facility] [address] [id number] PCP - General Nurse Practitioner 01/06/24
== END 2024-10-16 17:23 | disposition home or self-care (01) ==
PROVIDERS: Emergency Provider Registered Nurse
DX: M79.671 Pain in right foot (principal); M25.571 Pain in right ankle and joints of right foot; M25.471 Effusion, right ankle; F17.200 Nicotine dependence, unspecified, uncomplicated; J45.909 Unspecified asthma, uncomplicated
CPT/HCPCS: 73610; 73630; 99213; G0463